=== PATIENT | female | born 1975 | race Caucasian/White ===

== ENCOUNTER → 2016-06-08 | Outpatient (CLI) | payer BC | END | disposition home or self-care (01) | LOC: LAB 09:45 | PROVIDERS: ATTEND Obstetrics & Gynecology | DX: N92.4 Excessive bleeding in the premenopausal period (principal) ==

== ENCOUNTER 2016-08-26 07:05 | Day surgery (SDC) | payer BC ==
[2016-08-23 12:26] LABS: Basophils # (auto) 0 uL; Basophils % (auto) 0.8 % (0.0-2.0); DEFINITIVE VIEW TRANSMISSION; Eosinophils # (auto) 0.1 uL; Hematocrit 32.9 % (36.0-46.0); Hemoglobin 10.4 g/dL (12.2-16.2); Lymphocytes # (auto) 1.8 uL; Lymphocytes % (auto) 31.7 % (10.0-50.0); Mean Corpuscular Hemoglobin 23.5 pg (28.0-32.0); Mean Corpuscular Hgb Conc. 31.8 g/dL (32.0-36.0); Mean Platelet Volume 9.2 fL (7.4-10.4); Monocytes # (auto) 0.5 uL; Monocytes % (auto) 8.6 % (0.0-12.0); Neutrophils # (auto) 3.2 uL; Neutrophils % (auto) 56.9 % (37.0-80.0); Platelet Count (auto) 354 10^3/uL (140-450); Red Cell Distribution Width 18.6 % (11.6-16.0); White Blood Cell 5.5 10^3/uL (4.4-10.8)
[2016-08-23 12:29] LABS: Urine Bilirubin Negative (Negative); Urine Blood Negative /uL (Negative); Urine Color Yellow (Yellow); Urine Glucose Normal (Normal); Urine Ketone Negative (Negative); Urine Nitrite Negative (Negative); Urine Urobilinogen Normal (Negative); Urine pH 5.5 (5.0-8.0)
[2016-08-23 12:44] LABS: INR 1.05 (0.9-1.15); Partial Thromboplastin Time 26.4 sec (22.64-33.71); Prothrombin Time 11.3 sec (9.37-12.3)
[2016-08-23 12:52] LABS: Albumin 3.6 g/dL (3.4-5.0); BUN/Creatinine Ratio 19.5; Bilirubin, Total 0.2 mg/dL (0.2-1.0); Calcium 10.8 mg/dL (8.5-10.1); Potassium 4.2 mmol/L (3.5-5.1); Total Protein 7.7 g/dL (6.4-8.2)
[~2016-08-26] VITALS: Ht 167.6 cm; Wt 84.4 kg
[~2016-08-26 07:05] MED LIST: ALPR0.5T PO; BUPRTAB3 PO
[2016-08-26] MEDS ORDERED: ceFAZolin 1GM/50ML D5W 50 ML IV ONE (07:26)
[2016-08-26] MEDS ORDERED: PROPOFOL 10 MG/ML 20 ML IV ONE (08:31)
[2016-08-26] MEDS ORDERED: MIDAZOLAM HCL 1MG/1ML-2 ML VIAL ONE (08:31)
[2016-08-26] MEDS ORDERED: fentaNYL CITRATE 100 MCG/2 ML VL ONE (08:31)
[2016-08-26] MEDS ORDERED: LACTATED RINGER'S 1,000 ML IV SCH (09:13)
[2016-08-26] MEDS ORDERED: ONDANSETRON HCL 4 MG/2 ML VIAL IV PRN (09:15)
[2016-08-26] MEDS ORDERED: HYDROmorphone HCL 2 MG/ML VL ONE (09:17)
[2016-08-26] MEDS: HYDROmorphone HCL 2 MG/ML VL IV PRN ×2 (09:25→09:35)
[2016-08-26] MEDS ORDERED: hydrALAZINE HCL 20 MG/ML VL IV PRN (09:30)
[2016-08-26] MEDS ORDERED: ONDANSETRON HCL 4 MG/2 ML VIAL IV ONE (09:30)
[2016-08-26] MEDS ORDERED: ePHEDrine SULFATE 50 MG/ML AMP IV PRN (09:30)
[2016-08-26 10:20] VITALS: BP 126/99
== END 2016-08-26 10:23 | disposition home or self-care (01) ==
LOC: SUR 07:05
PROVIDERS: ATTEND Obstetrics & Gynecology
DX: N92.0 Excessive and frequent menstruation with regular cycle (principal); N93.9 Abnormal uterine and vaginal bleeding, unspecified; D64.9 Anemia, unspecified; F41.9 Anxiety disorder, unspecified; F32.9 Major depressive disorder, single episode, unspecified; N80.9 Endometriosis, unspecified
CPT/HCPCS: 36415; 58563; 80053; 81003; 84702; 85025; 85610; 85730; 86850; 86900; 86901; J0690; J1170; J2250; J2704; J3010

== ENCOUNTER → 2019-05-03 | Outpatient (CLI) | payer BC ==
[2019-05-03 11:26] LABS: Basophils # (auto) 0.1 uL; Basophils % (auto) 0.8 % (0.0-2.0); Eosinophils # (auto) 0.1 uL; Eosinophils % (auto) 2.2 % (0.0-7.0); Hemoglobin 12.9 g/dL (12.2-16.2); Lymphocytes # (auto) 2.1 uL; Lymphocytes % (auto) 33.5 % (10.0-50.0); Mean Corpuscular Hemoglobin 29.5 pg (28.0-32.0); Mean Corpuscular Hgb Conc. 33.8 g/dL (32.0-36.0); Mean Corpuscular Volume 87.3 fL (80.0-100.0); Monocytes # (auto) 0.5 uL; Neutrophils # (auto) 3.5 uL; Neutrophils % (auto) 55.5 % (37.0-80.0); Nucleated Red Blood Cells % 0.1 %; Platelet Count (auto) 250 10^3/uL (140-450); Red Blood Cells 4.36 10^6/uL (4.0-5.20); Red Cell Distribution Width 13.4 % (11.8-14.3); White Blood Cell 6.2 10^3/uL (4.4-10.8)
== END | disposition home or self-care (01) ==
LOC: LAB 09:58
PROVIDERS: ATTEND Specialist
DX: N39.9 Disorder of urinary system, unspecified (principal); F41.9 Anxiety disorder, unspecified
CPT/HCPCS: 36415; 84443; 85025

== ENCOUNTER 2019-06-07 07:00 | Inpatient (IN) | payer BC ==
[2019-06-03 12:01] LABS: Basophils # (auto) 0 uL; Basophils % (auto) 0.6 % (0.0-2.0); Eosinophils # (auto) 0.1 uL; Eosinophils % (auto) 1.9 % (0.0-7.0); Hematocrit 39.3 % (36.0-46.0); Lymphocytes # (auto) 2.1 uL; Lymphocytes % (auto) 36.2 % (10.0-50.0); Mean Corpuscular Hemoglobin 28.5 pg (28.0-32.0); Mean Corpuscular Hgb Conc. 33.1 g/dL (32.0-36.0); Mean Corpuscular Volume 86.1 fL (80.0-100.0); Monocytes # (auto) 0.4 uL; Monocytes % (auto) 6.7 % (0.0-12.0); Neutrophils # (auto) 3.1 uL; Neutrophils % (auto) 54.6 % (37.0-80.0); Nucleated Red Blood Cells % 0.1 %; Platelet Count (auto) 272 10^3/uL (140-450); Red Blood Cells 4.56 10^6/uL (4.0-5.20); White Blood Cell 5.7 10^3/uL (4.4-10.8)
[2019-06-03 12:23] LABS: INR 1.08 (0.9-1.15); Partial Thromboplastin Time 26.6 sec (23.64-32.05)
[2019-06-03 13:02] LABS: Albumin 3.9 g/dL (3.4-5.0); Calcium 10.7 mg/dL (8.5-10.1)
[2019-06-03 13:06] LABS: Bilirubin, Total 0.3 mg/dL (0.2-1.0)
[~2019-06-07] VITALS: Ht 170.2 cm; Wt 90.5 kg
[~2019-06-07 07:00] MED LIST changes: +SUMA100T15 PO
[2019-06-07] MEDS ORDERED: HYDROmorphone HCL 2 MG/ML VL ONE ×2 (08:24→11:54)
[2019-06-07] MEDS ORDERED: ONDANSETRON HCL 4 MG/2 ML VIAL ONE (08:24)
[2019-06-07] MEDS ORDERED: fentaNYL CITRATE 10 ML ONE (08:24)
[2019-06-07] MEDS ORDERED: ROCURONIUM 10MG/ML 10ML VIAL IV ONE (08:24)
[2019-06-07] MEDS ORDERED: PROPOFOL 10 MG/ML 20 ML IV ONE (08:24)
[2019-06-07] MEDS ORDERED: fentaNYL CITRATE 100 MCG/2 ML VL ONE (08:24)
[2019-06-07] MEDS ORDERED: SODIUM CHLORIDE LOCK 10 ML ONE (08:24)
[2019-06-07] MEDS ORDERED: MIDAZOLAM HCL 1MG/1ML-2 ML VIAL ONE (08:24)
[2019-06-07] MEDS ORDERED: NEOSTIGMINE 1 MG/ML INJ (10mg/10ML VIAL) IV ONE (08:30)
[2019-06-07] MEDS ORDERED: GLYCOPYRROLATE 0.2 MG/ML 1ML VIAL IV ONE (08:30)
[2019-06-07] MEDS ORDERED: KETOROLAC TROMETH 60MG/2ML VIAL IM ONE (08:30)
[2019-06-07] MEDS ORDERED: KETOROLAC TROMETH 15 mg/ml 1ML VL IV ONE (09:00)
[2019-06-07] MEDS ORDERED: METOCLOPRAMIDE HCL 5MG/ml INJ 2ml VIAL IV PRN (09:00)
[2019-06-07] MEDS ORDERED: HYDROmorphone HCL 2 MG/ML VL IV PRN (09:00)
[2019-06-07] MEDS ORDERED: MORPHINE SULF INJ 2 MG/ML SYRINGE 1ML IV PRN ×2 (09:00→12:00)
[2019-06-07] MEDS ORDERED: fentaNYL CITRATE 100 MCG/2 ML VL IV PRN (09:00)
[2019-06-07] MEDS ORDERED: ceFAZolin 1GM/50ML 100 ML IV ONE (09:02)
[2019-06-07] MEDS ORDERED: KETOROLAC TROMETH 15 mg/ml 1ML VL IV PRN (12:00)
[2019-06-07] MEDS ORDERED: NITROGLYCERIN 0.4 MG SL TAB SL PRN (12:00)
[2019-06-07] MEDS ORDERED: ONDANSETRON HCL 4 MG/2 ML VIAL IV PRN (12:00)
[2019-06-07] MEDS ORDERED: ACETAMINOPHEN IV 100 ML IV ONE ×2 (12:00→12:12)
[2019-06-07] MEDS ORDERED: ceFAZolin 1GM/50ML 50 ML IV ONE (12:00)
[2019-06-07] MEDS ORDERED: ACETAMINOPHEN IV 1000 MG/100ML (10MG/ML) IV ONE (12:15)
[2019-06-07 14:45] VITALS: BP 119/80
[2019-06-07] MEDS: HYDROmorphone HCL 2 MG/ML VL IV PRN ×3 (14:51→20:48)
[2019-06-07 15:11] VITALS: BP 119/80
[2019-06-07] MEDS: ceFAZolin 1GM/50ML 50 ML IV SCH (16:30)
[2019-06-07 17:00] VITALS: BP_SYST 120; BP_SYST 126; BP_DIAS 74; BP_DIAS 80
[2019-06-07 17:21] LABS: BUN/Creatinine Ratio 16.3; Calcium 9.5 mg/dL (8.5-10.1); Potassium 4.8 mmol/L (3.5-5.1)
[2019-06-07] MEDS: LACTATED RINGER'S 1,000 ML IV SCH (18:32)
--- NOTE | 2019-06-07 19:43 | NUR ---
Opening Shift Note Assumed care of patient, awake and alert x4. No S/S of distress/SOB or pain. Call light is within reach, side rails up x2, bed is in lowest position. Family is at bedside. Instructed on POC and to call for assist PRN, will continue to monitor for changes Q1hr and PRN.
[2019-06-07 21:00] VITALS: BP 110/71
[2019-06-08] MEDS: HYDROmorphone HCL 2 MG/ML VL IV PRN ×4 (00:04→21:26)
[2019-06-08] MEDS: ceFAZolin 1GM/50ML 50 ML IV SCH ×2 (00:16→09:40)
[2019-06-08] MEDS: LACTATED RINGER'S 1,000 ML IV SCH ×5 (01:12→21:00)
[2019-06-08 05:00] VITALS: BP 104/67
--- NOTE | 2019-06-08 07:42 | NUR ---
OPENING SHIFT NOTE ASSUMED CARE OF PATIENT. PATIENT IS AWAKE AND ALERT X4. PATIENT HAS NO S/S OF DISTRESS/SOB AT THIS TIME. INSTRUCTED PATIENT ON POC. BED IS IN LOWEST POSITION WITH SIDE RAILS RAISED X2, BED WHEELS LOCKED, AND CALL LIGHT IS WITHIN REACH.
[2019-06-08 09:00] VITALS: BP 95/59
[2019-06-08] MEDS ORDERED: SIMETHICONE 80 MG CHEWABLE TABLET PO PRN (10:15)
[2019-06-08] MEDS: KETOROLAC TROMETH 15 mg/ml 1ML VL IV SCH ×3 (10:47→17:42)
[2019-06-08 11:19] LABS: Basophils # (auto) 0 uL; Basophils % (auto) 0.2 % (0.0-2.0); Eosinophils # (auto) 0 uL; Hematocrit 29.5 % (36.0-46.0); Hemoglobin 9.7 g/dL (12.2-16.2); Lymphocytes # (auto) 1.8 uL; Lymphocytes % (auto) 15.5 % (10.0-50.0); Mean Corpuscular Hemoglobin 28.7 pg (28.0-32.0); Monocytes # (auto) 0.8 uL; Monocytes % (auto) 6.8 % (0.0-12.0); Neutrophils # (auto) 8.8 uL; Neutrophils % (auto) 77.5 % (37.0-80.0); Platelet Count (auto) 254 10^3/uL (140-450); Red Blood Cells 3.39 10^6/uL (4.0-5.20); White Blood Cell 11.4 10^3/uL (4.4-10.8)
[2019-06-08 11:35] LABS: Albumin 3.1 g/dL (3.4-5.0); Calcium 9.9 mg/dL (8.5-10.1)
[2019-06-08 11:38] LABS: BUN/Creatinine Ratio 15.8; Bilirubin, Total 0.3 mg/dL (0.2-1.0); Total Protein 6.6 g/dL (6.4-8.2)
[2019-06-08 13:00] VITALS: BP 106/69
[2019-06-08 16:34] VITALS: BP 120/77
[2019-06-08] MEDS: HYDROcodone-ACET 5/325MG TAB PO PRN (16:34)
--- NOTE | 2019-06-08 19:40 | NUR ---
Opening Shift Note Assumed care of patient, awake and alert. No S/S of distress/SOB or pain. Instructed on POC and to call for assist PRN, will continue to monitor for changes Q1hr and PRN. Patient abdomen incision dry and intact. 2 liter nasal canula connected. Family at bedside.
[2019-06-08 20:00] VITALS: BP 107/64
--- NOTE | 2019-06-08 20:24 | NUR ---
Patient Blood Pressure is 88/45, heart rate 86, temp 97.4, oxygen 98%, respirations 18. Will page hospitalist.
--- NOTE | 2019-06-08 20:29 | NUR ---
Blood pressure reassess 107/64, heart rate 84
[2019-06-08 21:55] VITALS: BP 107/64
[2019-06-09] MEDS: KETOROLAC TROMETH 15 mg/ml 1ML VL IV SCH ×2 (00:20→06:51)
[2019-06-09] MEDS: HYDROmorphone HCL 2 MG/ML VL IV PRN ×2 (01:31→21:38)
[2019-06-09] MEDS: LACTATED RINGER'S 1,000 ML IV SCH ×2 (03:52→12:15)
[2019-06-09] MEDS: HYDROcodone-ACET 5/325MG TAB PO PRN ×3 (04:32→17:45)
[2019-06-09 05:24] VITALS: BP 99/62
--- NOTE | 2019-06-09 07:37 | NUR ---
OPENING SHIFT NOTE RESUMED CARE OF PATIENT. PATIENT IS AWAKE AND ALERT X4. PATIENT HAS NO S/S OF DISTRESS/SOB AT THIS TIME. INSTRUCTED PATIENT ON POC. BED IS IN LOWEST POSITION WITH SIDE RAILS RAISED X2, BED WHEELS LOCKED, AND CALL LIGHT IS WITHIN REACH.
[2019-06-09 09:00] VITALS: BP 116/51
[2019-06-09 13:00] VITALS: BP 114/69
--- NOTE | 2019-06-09 13:19 | NUR ---
WOUND CARE PERFORMED PER DR BUI'S DIRECTION.
[2019-06-09 17:00] VITALS: BP 134/81
--- NOTE | 2019-06-09 19:30 | NUR ---
Opening Shift Note Assumed care of patient, awake and alert. No S/S of distress/SOB or pain. Instructed on POC and to call for assist PRN, will continue to monitor for changes Q1hr and PRN. at bedside.
[2019-06-09 22:00] VITALS: BP 119/68
[2019-06-10] MEDS: HYDROcodone-ACET 5/325MG TAB PO PRN ×2 (00:25→11:30)
[2019-06-10 05:00] VITALS: BP 101/54
[2019-06-10] MEDS: HYDROmorphone HCL 2 MG/ML VL IV PRN (06:15)
[2019-06-10 06:52] LABS: Basophils # (auto) 0.1 uL; Basophils % (auto) 0.9 % (0.0-2.0); Eosinophils # (auto) 0.1 uL; Eosinophils % (auto) 2.1 % (0.0-7.0); Hematocrit 25.5 % (36.0-46.0); Hemoglobin 8.5 g/dL (12.2-16.2); Lymphocytes # (auto) 2.4 uL; Lymphocytes % (auto) 36.6 % (10.0-50.0); Mean Corpuscular Hgb Conc. 33.4 g/dL (32.0-36.0); Mean Corpuscular Volume 86.9 fL (80.0-100.0); Monocytes # (auto) 0.7 uL; Monocytes % (auto) 10.1 % (0.0-12.0); Neutrophils # (auto) 3.3 uL; Neutrophils % (auto) 50.3 % (37.0-80.0); Nucleated Red Blood Cells % 0.1 %; Platelet Count (auto) 208 10^3/uL (140-450); Red Blood Cells 2.93 10^6/uL (4.0-5.20); Red Cell Distribution Width 13.9 % (11.8-14.3); White Blood Cell 6.5 10^3/uL (4.4-10.8)
--- NOTE | 2019-06-10 07:50 | NUR ---
DR. BUI COMES TO BEDSIDE WITH TWO INSURANCE INSTRUCTOR STUDENTS. REMOVES ABDOMINAL DSG. REPLACES ENDY WITH STERI STRIPS AND LEAVES OPEN TO AIR. INCISION IS WELL APPROXIMATED. DISCUSSED PLANS TO DC HOME TODAY. PT EXPRESSES WISH TO CONTINUE SLEEPING.
[2019-06-10 08:43] VITALS: BP 107/51
[2019-06-10 10:49] VITALS: BP 107/51
--- NOTE | 2019-06-10 12:31 | NUR ---
Pain well controlled. Dressed into clothing. IV DC cannula intact dsg applied. takes all belongings roll on travel bag and la pt has cell phone and cryptologic technician technical in hand. Discharge instructions provided. Reinforced rest at home and to keep incision area dry. To private vehicle via .
== END 2019-06-10 12:35 | disposition home or self-care (01) | DRG 743 ==
LOC: EDSTATUS 07:00 → EEVIPCON 07:45 → OVERFLOW 07:45 → EAST 14:37
PROVIDERS: ADMIT Specialist; ATTEND Specialist
PROC: 0UB50ZZ Excision of Right Fallopian Tube, Open Approach (ICD-10-PCS; 2019-06-07)
PROC: 0UB00ZZ Excision of Right Ovary, Open Approach (ICD-10-PCS; 2019-06-07)
PROC: 0UT90ZL Resection of Uterus, Supracervical, Open Approach (ICD-10-PCS; principal; 2019-06-07 09:15)
DX: D25.9 Leiomyoma of uterus, unspecified (principal); N73.6 Female pelvic peritoneal adhesions (postinfective); N80.9 Endometriosis, unspecified; N83.201 Unspecified ovarian cyst, right side; N83.202 Unspecified ovarian cyst, left side; N92.1 Excessive and frequent menstruation with irregular cycle; F41.9 Anxiety disorder, unspecified; N94.6 Dysmenorrhea, unspecified; Z80.0 Family history of malignant neoplasm of digestive organs; Z83.3 Family history of diabetes mellitus; Z79.899 Other long term (current) drug therapy; E66.9 Obesity, unspecified; Z68.31 Body mass index [BMI] 31.0-31.9, adult
CPT/HCPCS: 36415; 80048; 80053; 84702; 85025; 85610; 85730; 86850; 86900; 86901; 87086; G0378; J0131; J0690; J1885; J2250; J2405; J2704

== ENCOUNTER → 2019-06-20 | Outpatient (CLI) | payer BC ==
[2019-06-20 11:27] LABS: Basophils # (auto) 0.1 uL; Basophils % (auto) 0.7 % (0.0-2.0); Eosinophils # (auto) 0.2 uL; Eosinophils % (auto) 2.3 % (0.0-7.0); Hematocrit 33.5 % (36.0-46.0); Hemoglobin 10.9 g/dL (12.2-16.2); Lymphocytes # (auto) 2.6 uL; Lymphocytes % (auto) 27.9 % (10.0-50.0); Mean Corpuscular Hemoglobin 28.3 pg (28.0-32.0); Mean Corpuscular Hgb Conc. 32.5 g/dL (32.0-36.0); Mean Corpuscular Volume 87.1 fL (80.0-100.0); Monocytes # (auto) 0.5 uL; Monocytes % (auto) 5.9 % (0.0-12.0); Neutrophils # (auto) 5.9 uL; Neutrophils % (auto) 63.2 % (37.0-80.0); Nucleated Red Blood Cells % 0.1 %; Platelet Count (auto) 382 10^3/uL (140-450); Red Blood Cells 3.85 10^6/uL (4.0-5.20); Red Cell Distribution Width 14.8 % (11.8-14.3); White Blood Cell 9.3 10^3/uL (4.4-10.8)
[2019-06-20 11:49] LABS: Albumin 3.5 g/dL (3.4-5.0); Calcium 11.1 mg/dL (8.5-10.1); Potassium 4.4 mmol/L (3.5-5.1)
[2019-06-20 11:54] LABS: BUN/Creatinine Ratio 23.5; Bilirubin, Total 0.4 mg/dL (0.2-1.0); Total Protein 7.4 g/dL (6.4-8.2)
[2019-06-20 11:58] LABS: Leuteinizing Hormone 10.5 IU/L
[2019-06-20 11:59] LABS: Follicle Stimulating Hormone 6.12 IU/L (SEE BELOW)
== END | disposition home or self-care (01) ==
LOC: LAB 11:02
PROVIDERS: ATTEND Specialist
DX: N93.9 Abnormal uterine and vaginal bleeding, unspecified (principal)
CPT/HCPCS: 36415; 80053; 83001; 83002; 85025; 87086

== ENCOUNTER 2019-11-29 11:45 | Emergency (ER) | payer BC ==
[~2019-11-29] VITALS: Ht 170.2 cm; Wt 88.5 kg
[2019-11-29] MEDS ORDERED: SODIUM CHLORIDE 0.9% 1,000 ML IVB ONE (11:58)
[2019-11-29] MEDS ORDERED: MORPHINE SULF INJ 2 MG/ML SYRINGE 1ML IV ONE (12:00)
[2019-11-29] MEDS ORDERED: KETOROLAC TROMETH 30 MG/ML 1ML VIAL IV ONE (12:00)
[2019-11-29] MEDS ORDERED: ONDANSETRON HCL 4 MG/2 ML VIAL IV ONE (12:00)
[2019-11-29 13:17] LABS: Basophils # (auto) 0.1 10 ^3/uL (0-0.2); Basophils % (auto) 0.8 % (0.0-2.0); Eosinophils # (auto) 0.1 10 ^3/uL (0-0.8); Eosinophils % (auto) 1.4 % (0.0-7.0); Hematocrit 41.5 % (36.0-46.0); Hemoglobin 13.9 g/dL (12.2-16.2); Lymphocytes # (auto) 2.1 10 ^3/uL (0.4-5.4); Lymphocytes % (auto) 25.3 % (10.0-50.0); Mean Corpuscular Hemoglobin 28.9 pg (28.0-32.0); Mean Corpuscular Hgb Conc. 33.5 g/dL (32.0-36.0); Mean Corpuscular Volume 86.5 fL (80.0-100.0); Monocytes # (auto) 0.8 10 ^3/uL (0-1.3); Monocytes % (auto) 10.1 % (0.0-12.0); Neutrophils # (auto) 5.1 10 ^3/uL (1.6-8.6); Neutrophils % (auto) 62.4 % (37.0-80.0); Nucleated Red Blood Cells % 0.1 %; Platelet Count (auto) 203 10^3/uL (140-450); Red Cell Distribution Width 16.4 % (11.8-14.3); White Blood Cell 8.2 10^3/uL (4.4-10.8)
[2019-11-29 13:21] LABS: Urine Bacteria NONE SEEN /hpf (None Seen); Urine Blood 2+ /uL (Negative); Urine Mucus FEW (None Seen); Urine Specific Gravity 1.025 (1.001-1.035); Urine WBC 10 /hpf (0 - 5)
[2019-11-29 13:32] VITALS: BP 123/71
[2019-11-29 13:36] LABS: Albumin 3.7 g/dL (3.4-5.0); Calcium 11.3 mg/dL (8.5-10.1); Potassium 4.3 mmol/L (3.5-5.1)
[2019-11-29 13:37] LABS: BUN/Creatinine Ratio 33.3
[2019-11-29 13:40] LABS: Bilirubin, Total 0.5 mg/dL (0.2-1.0); Total Protein 7.6 g/dL (6.4-8.2)
== END 2019-11-29 13:47 | disposition home or self-care (01) ==
LOC: ER 11:45
DX: N20.9 Urinary calculus, unspecified (principal); Z90.710 Acquired absence of both cervix and uterus
CPT/HCPCS: 36415; 74176; 80053; 81001; 83690; 85025; 96374; 96375; 99284; J1885; J2405; J7030

== ENCOUNTER → 2020-03-12 | Outpatient (CLI) | payer BC ==
[2020-03-12 09:16] LABS: Basophils # (auto) 0.1 10 ^3/uL (0-0.2); Basophils % (auto) 0.8 % (0.0-2.0); Eosinophils # (auto) 0.1 10 ^3/uL (0-0.8); Eosinophils % (auto) 1.4 % (0.0-7.0); Hematocrit 43.4 % (36.0-46.0); Hemoglobin 14.3 g/dL (12.2-16.2); Lymphocytes # (auto) 2.6 10 ^3/uL (0.4-5.4); Lymphocytes % (auto) 39.4 % (10.0-50.0); Mean Corpuscular Hemoglobin 28.9 pg (28.0-32.0); Mean Corpuscular Hgb Conc. 32.8 g/dL (32.0-36.0); Mean Corpuscular Volume 88.1 fL (80.0-100.0); Monocytes # (auto) 0.5 10 ^3/uL (0-1.3); Monocytes % (auto) 7.5 % (0.0-12.0); Neutrophils # (auto) 3.4 10 ^3/uL (1.6-8.6); Neutrophils % (auto) 50.9 % (37.0-80.0); Nucleated Red Blood Cells % 0.2 %; Platelet Count (auto) 244 10^3/uL (140-450); Red Blood Cells 4.93 10^6/uL (4.0-5.20); Red Cell Distribution Width 13.8 % (11.8-14.3); White Blood Cell 6.7 10^3/uL (4.4-10.8)
[2020-03-12 09:30] LABS: Albumin 3.7 g/dL (3.4-5.0); Calcium 11.4 mg/dL (8.5-10.1); Potassium 4.3 mmol/L (3.5-5.1)
[2020-03-12 09:35] LABS: BUN/Creatinine Ratio 17.3; Bilirubin, Total 0.5 mg/dL (0.2-1.0); Total Protein 7.7 g/dL (6.4-8.2)
[2020-03-12 11:20] LABS: Free T4 (Free Thyroxine) 0.94 ng/dL (0.89-1.76)
[2020-03-12 11:21] LABS: T3 Total 0.89 ng/mL (0.60-1.81)
== END | disposition home or self-care (01) ==
LOC: LAB 08:44
PROVIDERS: ATTEND Physician Assistant
DX: N20.0 Calculus of kidney (principal); L65.9 Nonscarring hair loss, unspecified; R53.83 Other fatigue; R30.0 Dysuria
CPT/HCPCS: 36415; 80053; 80061; 84439; 84480; 85025

== ENCOUNTER → 2020-04-07 | Outpatient (CLI) | payer OTHER | END | disposition home or self-care (01) | LOC: LAB 17:02 | PROVIDERS: ATTEND Physician Assistant | DX: U07.1 COVID-19 (principal) | CPT/HCPCS: C9803; U0003 ==

== ENCOUNTER → 2021-05-13 | Outpatient (CLI) | payer BC ==
[2021-05-13 09:35] LABS: Basophils # (auto) 0 10 ^3/uL (0-0.2); Basophils % (auto) 0.8 % (0.0-2.0); Eosinophils # (auto) 0.1 10 ^3/uL (0-0.8); Eosinophils % (auto) 1.3 % (0.0-7.0); Hematocrit 41.9 % (36.0-46.0); Hemoglobin 14.1 g/dL (12.2-16.2); Lymphocytes # (auto) 2.3 10 ^3/uL (0.4-5.4); Lymphocytes % (auto) 35.9 % (10.0-50.0); Mean Corpuscular Hemoglobin 29.9 pg (28.0-32.0); Mean Corpuscular Hgb Conc. 33.8 g/dL (32.0-36.0); Mean Corpuscular Volume 88.4 fL (80.0-100.0); Monocytes # (auto) 0.4 10 ^3/uL (0-1.3); Monocytes % (auto) 5.8 % (0.0-12.0); Neutrophils # (auto) 3.6 10 ^3/uL (1.6-8.6); Neutrophils % (auto) 56.2 % (37.0-80.0); Nucleated Red Blood Cells % 0.1 %; Red Blood Cells 4.73 10^6/uL (4.0-5.20); Red Cell Distribution Width 13.2 % (11.8-14.3); White Blood Cell 6.4 10^3/uL (4.4-10.8)
[2021-05-13 10:44] LABS: Albumin 3.7 g/dL (3.4-5.0); Calcium 10.3 mg/dL (8.5-10.1); Potassium 4.2 mmol/L (3.5-5.1)
[2021-05-13 10:51] LABS: Bilirubin, Total 0.4 mg/dL (0.2-1.0); Total Protein 7.8 g/dL (6.4-8.2)
[2021-05-13 13:45] LABS: BUN/Creatinine Ratio 23.3
== END | disposition home or self-care (01) ==
LOC: LAB 09:00
PROVIDERS: ATTEND Nurse Practitioner Family
DX: Z00.00 Encounter for general adult medical examination without abnormal findings (principal); R73.09 Other abnormal glucose; E78.00 Pure hypercholesterolemia, unspecified; F41.9 Anxiety disorder, unspecified
CPT/HCPCS: 36415; 80053; 80061; 82043; 83036; 85025

== ENCOUNTER → 2021-07-19 | Day surgery (SDC) | payer BC ==
[2021-07-16 09:49] LABS: Basophils # (auto) 0.1 10 ^3/uL (0-0.2); Basophils % (auto) 0.9 % (0.0-2.0); Eosinophils # (auto) 0.1 10 ^3/uL (0-0.8); Eosinophils % (auto) 0.9 % (0.0-7.0); Hematocrit 40.3 % (36.0-46.0); Hemoglobin 13.9 g/dL (12.2-16.2); Lymphocytes # (auto) 2.7 10 ^3/uL (0.4-5.4); Lymphocytes % (auto) 47.5 % (10.0-50.0); Mean Corpuscular Hemoglobin 30.4 pg (28.0-32.0); Mean Corpuscular Hgb Conc. 34.5 g/dL (32.0-36.0); Monocytes # (auto) 0.4 10 ^3/uL (0-1.3); Monocytes % (auto) 6.5 % (0.0-12.0); Neutrophils # (auto) 2.5 10 ^3/uL (1.6-8.6); Neutrophils % (auto) 44.2 % (37.0-80.0); Red Blood Cells 4.58 10^6/uL (4.0-5.20); Red Cell Distribution Width 13.2 % (11.8-14.3); White Blood Cell 5.7 10^3/uL (4.4-10.8)
[2021-07-16 10:11] LABS: Albumin 3.9 g/dL (3.4-5.0); Calcium 10.8 mg/dL (8.5-10.1); Potassium 3.9 mmol/L (3.5-5.1)
[2021-07-16 10:15] LABS: Bilirubin, Total 0.5 mg/dL (0.2-1.0); Total Protein 7.7 g/dL (6.4-8.2)
[2021-07-16 10:31] LABS: Urine Bacteria FEW /hpf (None Seen); Urine Blood Negative /uL (Negative); Urine Mucus FEW (None Seen); Urine Specific Gravity 1.017 (1.001-1.035); Urine WBC 15 /hpf (0 - 5)
[2021-07-16 10:37] LABS: INR 1.06 (0.9-1.15); Partial Thromboplastin Time 29.1 sec (23.6-33.0)
[2021-07-16 13:19] LABS: BUN/Creatinine Ratio 14.3
[~2021-07-19] VITALS: Ht 170.2 cm; Wt 92.5 kg
[~2021-07-19] MED LIST changes: -ALPR0.5T PO; +CIPROFLOXACIN 400MG/200ML 200 ML IV ONE; +DexAMETHasone SOD PHOS 10MG/1ML VIAL INJ ONE; +METOCLOPRAMIDE HCL 5MG/ml INJ 2ml VIAL IV PRN; +MIDAZOLAM HCL 2MG/2ML 2ml VIAL (1mg/ml) ONE; +MORPHINE SULFATE 4 MG/ML SYR/VIAL IV PRN; +ONDANSETRON HCL 4 MG/2 ML VIAL ONE; +PROPOFOL 10 MG/ML 20 ML IV ONE; +SERT25TA84 PO; +SODIUM CHLORIDE LOCK 10 ML ONE; +SUCCINYLCHOLINE CHLORIDE 20 MG/ML 10ML VIAL IV ONE; -SUMA100T15 PO; +fentaNYL CITRATE 100 MCG/2 ML VL ONE
[2021-07-19] MEDS: HYDROmorphone HCL 2 MG/ML VL IV PRN ×2 (08:52→09:04)
[2021-07-19 09:45] VITALS: BP 125/80
== END | disposition home or self-care (01) ==
LOC: SUR 06:26
PROVIDERS: ATTEND Urology
DX: N20.0 Calculus of kidney (principal); F32.A Depression, unspecified; E66.9 Obesity, unspecified; F41.9 Anxiety disorder, unspecified; Z86.16 Personal history of COVID-19; Z90.710 Acquired absence of both cervix and uterus; Z98.890 Other specified postprocedural states; Z79.899 Other long term (current) drug therapy; Z82.49 Family history of ischemic heart disease and other diseases of the circulatory system; Z83.3 Family history of diabetes mellitus; Z81.3 Family history of other psychoactive substance abuse and dependence; Z68.32 Body mass index [BMI] 32.0-32.9, adult
CPT/HCPCS: 36415; 50590; 80053; 81001; 85025; 85610; 85730; J0330; J0744; J1100; J1170; J2250; J2405; J2704; J3010; U0003

== ENCOUNTER → 2021-11-15 | Day surgery (SDC) | payer BC ==
[2021-11-12 09:29] LABS: Basophils # (auto) 0 10 ^3/uL (0-0.2); Basophils % (auto) 0.6 % (0.0-2.0); Eosinophils # (auto) 0.1 10 ^3/uL (0-0.8); Eosinophils % (auto) 1.5 % (0.0-7.0); Hematocrit 42.9 % (36.0-46.0); Hemoglobin 14.3 g/dL (12.2-16.2); Mean Corpuscular Hemoglobin 29.8 pg (28.0-32.0); Mean Corpuscular Hgb Conc. 33.3 g/dL (32.0-36.0); Mean Corpuscular Volume 89.3 fL (80.0-100.0); Monocytes # (auto) 0.4 10 ^3/uL (0-1.3); Monocytes % (auto) 7.2 % (0.0-12.0); Neutrophils # (auto) 2.5 10 ^3/uL (1.6-8.6); Neutrophils % (auto) 49.7 % (37.0-80.0); Red Cell Distribution Width 13.8 % (11.8-14.3)
[2021-11-12 09:41] LABS: Urine Bacteria NONE SEEN /hpf (None Seen); Urine Blood 1+ /uL (Negative); Urine Mucus FEW (None Seen); Urine Specific Gravity 1.021 (1.001-1.035); Urine WBC 40 /hpf (0 - 5)
[2021-11-12 09:52] LABS: INR 1.03 (0.9-1.15); Partial Thromboplastin Time 27.5 sec (24.6-33.4)
[2021-11-12 10:14] LABS: Albumin 3.8 g/dL (3.4-5.0); Calcium 10.7 mg/dL (8.5-10.1); Potassium 4.2 mmol/L (3.5-5.1)
[2021-11-12 10:18] LABS: BUN/Creatinine Ratio 20.5; Bilirubin, Total 0.4 mg/dL (0.2-1.0); Total Protein 7.7 g/dL (6.4-8.2)
[~2021-11-15] VITALS: Ht 170.2 cm; Wt 91.6 kg
[~2021-11-15] MED LIST changes: +ALPR0.25 PO; -BUPRTAB3 PO; -CIPROFLOXACIN 400MG/200ML 200 ML IV ONE; +LABETALOL HCL 5 MG/ML 4ML SYRINGE IV PRN; +MEPERIDINE HCL (25 MG/ML) 1ML VIAL ONE; -METOCLOPRAMIDE HCL 5MG/ml INJ 2ml VIAL IV PRN; +MIDAZOLAM HCL 2MG/2ML 2ml VIAL (1mg/ml) IV PRN; +ONDANSETRON HCL 4 MG/2 ML VIAL IV PRN; -ONDANSETRON HCL 4 MG/2 ML VIAL ONE; -SERT25TA84 PO; -SODIUM CHLORIDE LOCK 10 ML ONE; -SUCCINYLCHOLINE CHLORIDE 20 MG/ML 10ML VIAL IV ONE; +ceFAZolin 1GM/50ML 50 ML IV ONE; +ePHEDrine SULFATE 50 MG/ML AMP IV PRN
[2021-11-15] MEDS: HYDROmorphone HCL 2 MG/ML VL/or syr IV PRN ×4 (08:43→09:15)
[2021-11-15 09:49] VITALS: BP 124/79
== END | disposition home or self-care (01) ==
LOC: SUR 06:29
PROVIDERS: ATTEND Urology
DX: N20.0 Calculus of kidney (principal); F41.9 Anxiety disorder, unspecified; E66.9 Obesity, unspecified; F32.A Depression, unspecified; Z90.710 Acquired absence of both cervix and uterus; Z68.32 Body mass index [BMI] 32.0-32.9, adult; Z82.49 Family history of ischemic heart disease and other diseases of the circulatory system; Z83.3 Family history of diabetes mellitus; Z84.1 Family history of disorders of kidney and ureter; Z20.822 Contact with and (suspected) exposure to COVID-19
CPT/HCPCS: 36415; 50590; 80053; 81001; 85025; 85610; 85730; 87086; J0690; J1100; J1170; J2175; J2250; J2704; J3010; U0003

== ENCOUNTER 2022-01-05 08:18 | Emergency (ER) | payer BC ==
[~2022-01-05] VITALS: Ht 170.2 cm; Wt 92.7 kg
[~2022-01-05 08:18] MED LIST changes: -DexAMETHasone SOD PHOS 10MG/1ML VIAL INJ ONE; -LABETALOL HCL 5 MG/ML 4ML SYRINGE IV PRN; -MEPERIDINE HCL (25 MG/ML) 1ML VIAL ONE; -MIDAZOLAM HCL 2MG/2ML 2ml VIAL (1mg/ml) IV PRN; -MIDAZOLAM HCL 2MG/2ML 2ml VIAL (1mg/ml) ONE; -MORPHINE SULFATE 4 MG/ML SYR/VIAL IV PRN; -ONDANSETRON HCL 4 MG/2 ML VIAL IV PRN; -PROPOFOL 10 MG/ML 20 ML IV ONE; -ceFAZolin 1GM/50ML 50 ML IV ONE; -ePHEDrine SULFATE 50 MG/ML AMP IV PRN; -fentaNYL CITRATE 100 MCG/2 ML VL ONE
[2022-01-05 09:07] LABS: Urine Bacteria NONE SEEN /hpf (None Seen); Urine Blood 1+ /uL (Negative); Urine Mucus FEW (None Seen); Urine Specific Gravity 1.021 (1.001-1.035); Urine WBC 8 /hpf (0 - 5)
[2022-01-05] MEDS ORDERED: KETOROLAC TROMETH 60MG/2ML VIAL IM ONE (10:15)
[2022-01-05] MEDS ORDERED: TAM04C PO (11:57)
[2022-01-05] MEDS ORDERED: ONDA-144 PO (11:57)
[2022-01-05 12:10] VITALS: BP 137/88
== END 2022-01-05 12:13 | disposition home or self-care (01) ==
LOC: ER 08:18
DX: N20.0 Calculus of kidney (principal); Z90.710 Acquired absence of both cervix and uterus
CPT/HCPCS: 74176; 81001; 96372; 99284; J1885

== ENCOUNTER → 2022-07-22 | Outpatient (CLI) | payer BC ==
[~2022-07-22] MED LIST changes: +ONDA-144 PO; +TAM04C PO
[2022-07-22 09:16] LABS: Basophils # (auto) 0 10 ^3/uL (0-0.2); Basophils % (auto) 0.5 % (0.0-2.0); Eosinophils # (auto) 0.1 10 ^3/uL (0-0.8); Eosinophils % (auto) 1.2 % (0.0-7.0); Hematocrit 41.9 % (36.0-46.0); Hemoglobin 14.2 g/dL (12.2-16.2); Lymphocytes # (auto) 2.8 10 ^3/uL (0.4-5.4); Lymphocytes % (auto) 41.3 % (10.0-50.0); Mean Corpuscular Hemoglobin 30.2 pg (28.0-32.0); Mean Corpuscular Volume 88.9 fL (80.0-100.0); Monocytes # (auto) 0.5 10 ^3/uL (0-1.3); Neutrophils # (auto) 3.4 10 ^3/uL (1.6-8.6); Nucleated Red Blood Cells % 0.1 %; Red Blood Cells 4.72 10^6/uL (4.0-5.20); Red Cell Distribution Width 13.5 % (11.8-14.3); White Blood Cell 6.8 10^3/uL (4.4-10.8)
[2022-07-22 09:24] LABS: Urine Bacteria NONE SEEN /hpf (None Seen); Urine Blood Negative /uL (Negative); Urine Mucus FEW (None Seen); Urine Specific Gravity 1.018 (1.001-1.035); Urine WBC 4 /hpf (0 - 5)
[2022-07-22 09:51] LABS: Albumin 3.7 g/dL (3.4-5.0); Calcium 10.4 mg/dL (8.5-10.1); Potassium 4.3 mmol/L (3.5-5.1)
[2022-07-22 09:55] LABS: BUN/Creatinine Ratio 18.9 (10.0-20.0); Bilirubin, Total 0.3 mg/dL (0.2-1.0); Total Protein 7.5 g/dL (6.4-8.2)
== END | disposition home or self-care (01) ==
LOC: LAB 08:55
PROVIDERS: ATTEND Nurse Practitioner Family
DX: E78.00 Pure hypercholesterolemia, unspecified (principal); R73.03 Prediabetes; F41.9 Anxiety disorder, unspecified
CPT/HCPCS: 36415; 80053; 80061; 81001; 82043; 83036; 84439; 84443; 85025

== ENCOUNTER → 2023-11-21 | Outpatient (CLI) | payer BC ==
[~2023-11-21] MED LIST changes: -TAM04C PO; +TAMS-35 PO
[2023-11-21 09:08] LABS: Basophils # (auto) 0.1 10 ^3/uL (0-0.2); Basophils % (auto) 0.9 % (0.0-2.0); Eosinophils # (auto) 0.1 10 ^3/uL (0-0.8); Hematocrit 42.3 % (36.0-46.0); Hemoglobin 14.5 g/dL (12.2-16.2); Lymphocytes # (auto) 3.1 10 ^3/uL (0.4-5.4); Mean Corpuscular Hemoglobin 30.5 pg (28.0-32.0); Mean Corpuscular Hgb Conc. 34.4 g/dL (32.0-36.0); Mean Corpuscular Volume 88.7 fL (80.0-100.0); Monocytes # (auto) 0.5 10 ^3/uL (0-1.3); Monocytes % (auto) 7.6 % (0.0-12.0); Neutrophils # (auto) 2.4 10 ^3/uL (1.6-8.6); Neutrophils % (auto) 39.5 % (37.0-80.0); Nucleated Red Blood Cells % 0.2 %; Red Blood Cells 4.77 10^6/uL (4.0-5.20); Red Cell Distribution Width 13.6 % (11.8-14.3); White Blood Cell 6.2 10^3/uL (4.4-10.8)
[2023-11-21 09:33] LABS: Creatinine, Urine 139.05 mg/dL (30.0-125.0)
[2023-11-21 09:37] LABS: Alanine Aminotransferase 16 U/L (7-40); Albumin 4.3 g/dL (3.2-4.8); Alkaline Phosphatase 139 U/L (46-116); Anion Gap 6 (5-15); Aspartate Aminotransferase < 8 U/L (13-40); BUN/Creatinine Ratio 19.3 (10.0-20.0); Bilirubin, Total 0.4 mg/dL (0.2-1.0); Blood Urea Nitrogen 17 mg/dL (9-23); Calcium 11.2 mg/dL (8.7-10.4); Carbon Dioxide 26 mmol/L (20-30); Chloride 106 mmol/L (98-107); Cholesterol 228 mg/dL (< 200); Glucose 165 mg/dL (74-106); HDL Cholesterol 37 mg/dL (40-59); Potassium 3.7 mmol/L (3.5-5.1); Sodium 138 mmol/L (136-145); Triglycerides 461 mg/dL (< 150)
== END | disposition home or self-care (01) ==
LOC: LAB 08:51 → EEVIPCON 08:51
PROVIDERS: ATTEND Nurse Practitioner Family
DX: E11.65 Type 2 diabetes mellitus with hyperglycemia (principal); E78.00 Pure hypercholesterolemia, unspecified
CPT/HCPCS: 36415; 80053; 80061; 82043; 82306; 82570; 83036; 84443; 85025

== ENCOUNTER → 2024-01-22 | Outpatient (CLI) | payer BC ==
[2024-01-22 12:10] VITALS: BP 124/87; PULSE 72; RESP 16; O2SAT 98
[2024-01-22] MEDS: MVI in SODIUM CHLORIDE 0.9% 500 ML IVB ONE (12:10)
[2024-01-22] MEDS: MULTIPLE VIT 10 ML IV ONE (12:38)
[2024-01-22 14:48] VITALS: BP 127/73; PULSE 67; RESP 18; O2SAT 98
== END | disposition home or self-care (01) ==
LOC: CHF HDHVI 12:04
PROVIDERS: ATTEND Internal Medicine Cardiovascular Disease
DX: E86.0 Dehydration (principal); E11.65 Type 2 diabetes mellitus with hyperglycemia; E78.00 Pure hypercholesterolemia, unspecified
CPT/HCPCS: 96365; 96366; G0463; J7040; 96360; 96361

== ENCOUNTER → 2024-01-31 | Outpatient (CLI) | payer BC ==
[2024-01-31 13:59] VITALS: BP 128/81; PULSE 64; RESP 18; O2SAT 97
[2024-01-31] MEDS: MVI in SODIUM CHLORIDE 0.9% 500 ML IVB ONE (13:59)
[2024-01-31] MEDS: MULTIPLE VIT 10 ML IV ONE (14:07)
[2024-01-31 14:13] VITALS: BP 135/90; PULSE 65; RESP 20; O2SAT 97
== END | disposition home or self-care (01) ==
LOC: CHF HDHVI 13:58
PROVIDERS: ATTEND Internal Medicine Cardiovascular Disease
DX: E86.0 Dehydration (principal); E78.00 Pure hypercholesterolemia, unspecified; E11.9 Type 2 diabetes mellitus without complications
CPT/HCPCS: 96365; G0463; J3411; J3475; J7040; 96360; 96361

== ENCOUNTER → 2024-02-07 | Outpatient (CLI) | payer BC ==
[2024-02-07 14:00] VITALS: BP 113/79; PULSE 67; RESP 16; O2SAT 98
[2024-02-07] MEDS: MULTIPLE VIT 10 ML IV ONE (14:06)
[2024-02-07] MEDS: MVI in SODIUM CHLORIDE 0.9% 500 ML IVB ONE (14:30)
[2024-02-07 16:25] VITALS: BP 111/68; PULSE 61; RESP 16; O2SAT 96
== END | disposition home or self-care (01) ==
LOC: CHF HDHVI 14:00
PROVIDERS: ATTEND Internal Medicine Cardiovascular Disease
DX: E86.0 Dehydration (principal); E11.9 Type 2 diabetes mellitus without complications; E78.00 Pure hypercholesterolemia, unspecified
CPT/HCPCS: 96365; 96366; G0463; J3411; J3475; J7040; 96360; 96361

== ENCOUNTER → 2024-02-14 | Outpatient (CLI) | payer BC ==
[~2024-02-14] VITALS: Ht 30.5 cm; Wt 0.5 kg
[2024-02-14 14:10] VITALS: BP 120/75; PULSE 61; RESP 18; O2SAT 94
[2024-02-14] MEDS: MVI in SODIUM CHLORIDE 0.9% 500 ML IVB ONE (14:10)
[2024-02-14] MEDS: MULTIPLE VIT 10 ML IV ONE (14:18)
[2024-02-14 16:27] VITALS: BP 146/74; PULSE 61; RESP 18; O2SAT 96
== END | disposition home or self-care (01) ==
LOC: CHF HDHVI 14:00
PROVIDERS: ATTEND Internal Medicine Cardiovascular Disease
DX: E86.0 Dehydration (principal); E78.00 Pure hypercholesterolemia, unspecified; E11.9 Type 2 diabetes mellitus without complications
CPT/HCPCS: 96365; 96366; G0463; J7040; 96360; 96361

== ENCOUNTER → 2024-03-06 | Outpatient (CLI) | payer BC ==
[2024-03-06 14:00] VITALS: BP 133/77; PULSE 52; RESP 18; O2SAT 97
[2024-03-06] MEDS: MVI in SODIUM CHLORIDE 0.9% 500 ML IVB ONE (14:00)
[2024-03-06] MEDS: MULTIPLE VIT 10 ML IV ONE (14:34)
[2024-03-06 16:18] VITALS: BP 138/87; PULSE 60; RESP 18; O2SAT 97
== END | disposition home or self-care (01) ==
LOC: CHF HDHVI 13:57
PROVIDERS: ATTEND Internal Medicine Cardiovascular Disease
DX: E86.0 Dehydration (principal); E11.9 Type 2 diabetes mellitus without complications; E78.00 Pure hypercholesterolemia, unspecified
CPT/HCPCS: 96365; 96366; G0463; J3411; J3475; J7040; 96360; 96361

== ENCOUNTER → 2024-03-13 | Outpatient (CLI) | payer BC ==
[2024-03-13 14:00] VITALS: BP 123/78; PULSE 65; RESP 16; O2SAT 98
[2024-03-13] MEDS: MVI in SODIUM CHLORIDE 0.9% 1,000 ML IVB ONE (14:00)
[2024-03-13] MEDS: MULTIPLE VIT 10 ML IV ONE (14:19)
[2024-03-13 16:17] VITALS: BP 123/78; PULSE 65; RESP 16; O2SAT 98
== END | disposition home or self-care (01) ==
LOC: CHF HDHVI 13:56
PROVIDERS: ATTEND Internal Medicine Cardiovascular Disease
DX: E86.0 Dehydration (principal); R53.83 Other fatigue; E11.9 Type 2 diabetes mellitus without complications; E78.00 Pure hypercholesterolemia, unspecified
CPT/HCPCS: 96365; 96366; G0463; J7040; 96360; 96361

== ENCOUNTER → 2024-03-20 | Outpatient (CLI) | payer BC ==
[2024-03-20 13:58] VITALS: BP 119/75; PULSE 57; RESP 16; O2SAT 97
[2024-03-20] MEDS: MVI in SODIUM CHLORIDE 0.9% 500 ML IVB ONE (14:00)
[2024-03-20] MEDS: MULTIPLE VIT 10 ML IV ONE (14:11)
[2024-03-20 16:16] VITALS: BP 141/83; PULSE 60; RESP 18; O2SAT 97
== END | disposition home or self-care (01) ==
LOC: CHF HDHVI 13:53
PROVIDERS: ATTEND Internal Medicine Cardiovascular Disease
DX: E86.0 Dehydration (principal); R53.83 Other fatigue; E11.9 Type 2 diabetes mellitus without complications; E78.00 Pure hypercholesterolemia, unspecified
CPT/HCPCS: 96365; 96366; G0463; J3411; J3475; J7040; 96360; 96361

== ENCOUNTER → 2024-03-27 | Outpatient (CLI) | payer BC ==
[2024-03-27 10:00] VITALS: BP 132/79; PULSE 67; RESP 16; O2SAT 99
[2024-03-27] MEDS: MVI in SODIUM CHLORIDE 0.9% 500 ML IVB ONE (10:00)
[2024-03-27] MEDS: MULTIPLE VIT 10 ML IV ONE (10:04)
[2024-03-27 12:19] VITALS: BP 137/65; PULSE 63; RESP 16; O2SAT 99
== END | disposition home or self-care (01) ==
LOC: CHF HDHVI 10:00
PROVIDERS: ATTEND Internal Medicine Cardiovascular Disease
DX: E86.0 Dehydration (principal); R53.83 Other fatigue; E11.9 Type 2 diabetes mellitus without complications; E78.00 Pure hypercholesterolemia, unspecified
CPT/HCPCS: 96365; 96366; G0463; J7040; 96360; 96361

== ENCOUNTER → 2024-04-05 | Outpatient (CLI) | payer BC ==
[2024-04-05 14:08] VITALS: BP 128/83; PULSE 90; RESP 16; O2SAT 97
[2024-04-05] MEDS: MULTIPLE VIT 10 ML IV ONE (14:22)
[2024-04-05] MEDS: MVI in SODIUM CHLORIDE 0.9% 500 ML IVB ONE (14:26)
[2024-04-05 16:27] VITALS: BP 133/85; PULSE 58; RESP 16; O2SAT 97
== END | disposition home or self-care (01) ==
LOC: CHF HDHVI 14:35
PROVIDERS: ATTEND Internal Medicine Cardiovascular Disease
DX: E86.0 Dehydration (principal); R53.83 Other fatigue; E11.9 Type 2 diabetes mellitus without complications; E78.00 Pure hypercholesterolemia, unspecified
CPT/HCPCS: 96365; 96366; G0463; J3411; J3475; J7040; 96360; 96361

== ENCOUNTER → 2024-04-10 | Outpatient (CLI) | payer BC ==
[2024-04-10] MEDS: MULTIPLE VIT 10 ML IV ONE (13:35)
[2024-04-10 13:36] VITALS: BP 126/80; PULSE 75; RESP 18; O2SAT 98
[2024-04-10] MEDS: MVI in SODIUM CHLORIDE 0.9% 500 ML IVB ONE (13:36)
[2024-04-10 15:45] VITALS: BP 126/80; PULSE 75; RESP 18; O2SAT 98
== END | disposition home or self-care (01) ==
LOC: CHF HDHVI 13:32
PROVIDERS: ATTEND Internal Medicine Cardiovascular Disease
DX: E86.0 Dehydration (principal); E78.00 Pure hypercholesterolemia, unspecified; E11.9 Type 2 diabetes mellitus without complications
CPT/HCPCS: 96365; 96366; G0463; J7040; 96360; 96361

== ENCOUNTER → 2024-04-17 | Outpatient (CLI) | payer BC ==
[2024-04-17 14:06] VITALS: BP 127/83; PULSE 66; RESP 18; O2SAT 100
[2024-04-17 14:30] VITALS: BP 127/83; PULSE 66; RESP 18; O2SAT 100
[2024-04-17] MEDS: MULTIPLE VIT 10 ML IV ONE ×2 (14:42)
== END | disposition home or self-care (01) ==
LOC: CHF HDHVI 14:02
PROVIDERS: ATTEND Internal Medicine Cardiovascular Disease
DX: E86.0 Dehydration (principal)
CPT/HCPCS: G0463

== ENCOUNTER 2024-12-06 17:40 | Inpatient (IN) | payer BC ==
[~2024-12-06] VITALS: Ht 167.6 cm; Wt 76.2 kg
--- NOTE | 2024-12-06 19:34 | ED.PDOC ---
General HPI Comments 49-year-old female with a history of kidney stones status post lithotripsy, hysterectomy and gastric sleeve brought in by private car complaining of left flank pain radiating to the left lower quadrant for the past 2 or 3 days. Patient states she sustained a right foot fracture about a week ago and was given a steroid injection for foot inflammation. She was seen at another facility today which showed a urine dip positive for urinary tract infection. She started nitrofurantoin today. She reports no fever, does have nausea but no vomiting, also has hematuria. Chief Complaint: Flank Pain Time Seen by MD: 17:52 Primary Care Provider: PATRICIA Reviewed notes: Nurses Notes Allergies: Coded Allergies: NO KNOWN ALLERGIES (Unverified , 06/03/19) Home Meds Active Scripts Tamsulosin Hcl (Flomax) 0.4 Mg Cap, 1 CAP PO DAILY, #30 CAP 11 Refills Prov:IRON CÁRDENAS 01/05/22 Ondansetron (Zofran) 4 Mg Tab, 1 TAB PO BID, #20 TAB Prov:IRON CÁRDENAS 01/05/22 Reported Medications Alprazolam (Xanax) 0.25 Mg Tb, 0.25 MG PO HS, TAB 11/12/21 Information Source: Patient Mode of Arrival: Ambulatory Severity: Moderate Inability to void: Mild Timing: Days Duration: Intermittent Has not urinated for: Minutes Onset: Spontaneous Symptoms: Dysuria, Hematuria History of: Kidney stone Location: (L)Flank associated signs and symptoms: Nausea, Flank Pain, Back Pain, Dysuria, Hematuria Past Medical History PAST MEDICAL HISTORY: Anxiety, Depression, Kidney Stones Surgical History: Hysterectomy Surgical History (Other): Gastric sleeve, lithotripsy [employer] History: Endometriosis Family History Family History: Reviewed,noncontributory to illness, Family hx of DM, Family hx of Cancer Social History Smoker: Non-Smoker Alcohol: Occasionally Drugs: Denies Drug Use Lives In: Home Constitutional: denies: chills, diaphoresis, fatigue, fever, malaise, sweats, weakness, others EENTM: denies: blurred vision, double vision, ear bleeding, ear discharge, ear drainage, ear pain, ear ringing, eye pain, eye redness, hearing loss, mouth pain, mouth swelling, nasal discharge, nose bleeding, nose congestion, nose pain, photophobia, tearing, throat pain, throat swelling, voice changes, others Respiratory: denies: cough, hemoptysis, orthopnea, SOB at rest, shortness of breath, SOB with excertion, stridor, wheezing, others Cardiovascular: denies: chest pain, dizzy spells, diaphoresis, Dyspnea on exertion, edema, irregular heart beat, left arm pain, lightheadedness, palpitations, PND, syncope, others Gastrointestinal: reports: nausea; denies: abdomen distended, abdominal pain, blood streaked bowels, constipated, diarrhea, dysphagia, difficulty swallowing, hematemesis, melena, poor appetite, poor fluid intake, rectal bleeding, rectal pain, vomiting, others Genitourinary: reports: dysuria, flank pain (left), hematuria; denies: abnormal vagina bleeding, burning, dyspareunia, frequency, incontinence, pain, , vagina discharge, urgency, others Neurological: denies: dizziness, fainting, headache, left sided numbness, left sided weakness, numbness, paresthesia, pre-existing deficit, right sided numbness, right sided weakness, seizure, speech problems, tingling, tremors, weakness, others Musculoskeletal: reports: back pain; denies: gout, joint pain, joint swelling, muscle pain, muscle stiffness, neck pain, others Integumetry: denies: bruises, change in color, change in hair/nails, dryness, laceration, lesions, lumps, rash, wounds, others Allergic/Immunocompromised: denies: Difficulty Healing, Frequent Infections, Hives, Itching, others Hematologic/Lymphatic: denies: anemia, blood clots, easy bleeding, easy bruising, swollen glands, others Endocrine: denies: excessive hunger, excessive sweating, excessive thirst, excessive urination, flushing, intolerance to cold, intolerance to heat, unexplained weight gain, unexplained weight loss, others Psychiatric: denies: anxiety, bipolar disorder, depression, hopeless, panic disorder, schizophrenia, sleepless, suicidal, others All Other Systems: Reviewed and Negative (Comprehensive systems review obtained and negative except for what is stated in the HPI.) Physical Exam General Appearance: No Apparent Distress HEENT: Other (Pupils and face symmetric. Moist mucous membranes.) Neck: Full Range of Motion, Normal Inspection Respiratory: Lungs Clear, No Accessory Muscle Use, No Respiratory Distress, Normal Breath Sounds Cardiovascular: No Edema, No JVD, Regular Rate/Rhythm Breast Exam: Deferred Gastrointestinal: Soft, Tenderness (Left flank and left lower quadrant) Genitalia: Deferred Pelvic: Deferred Rectal: Deferred Extremities: Other (Right lower extremity orthopedic boot in place. Otherwise extremities normal to inspection without edema or tenderness.) Neurologic: Alert (Oriented x4), NOT DONE (Ambulatory without difficulty) Cerebellar Function: NOT DONE Reflexes: NOT DONE Skin: Dry, Normal Color, Warm Lymphatic: NOT DONE Was a procedure done? Was a procedure done?: No Differential Diagnosis Kidney stone (Female): Bowel obstruction, Musculoskeletal pain, Pyelonephritis, Renal failure, Urinary obstruction, Urolithiasis Kidney stone (Male): N/A Penile/Scrotal: N/A Urinary Problem (Male): N/A Urinary Problem (Female): AAA, Aortic dissection, UTI X-Ray, Labs, Meds, VS Vital Signs Date Time Temp Pulse Resp B/P (MAP) Pulse Ox O2 Delivery O2 Flow Rate FiO2 12/06/24 20:50 86 19 100 Room Air 12/06/24 20:50 98.2 86 19 128/87 (101) 100 98.2 12/06/24 17:41 98.2 78 18 146/90 99 98.2 Lab Test 12/06/24 20:27 12/06/24 18:50 Range/Units White Blood Count 12.4 H 4.4-10.8 10^3/uL Red Blood Count 4.91 4.0-5.20 10^6/uL Hemoglobin 14.8 12.2-16.2 g/dL Hematocrit 43.7 36.0-46.0 % Mean Corpuscular Volume 89.0 80.0-100.0 fL Mean Corpuscular Hemoglobin 30.2 28.0-32.0 pg Mean Corpuscular Hemoglobin Concent 34.0 32.0-36.0 g/dL Red Cell Distribution Width 13.3 11.8-14.3 % Platelet Count 223 140-450 10^3/uL Mean Platelet Volume 9.4 6.9-10.8 fL Neutrophils (%) (Auto) 75.6 37.0-80.0 % Lymphocytes (%) (Auto) 14.2 10.0-50.0 % Monocytes (%) (Auto) 8.8 0.0-12.0 % Eosinophils (%) (Auto) 1.0 0.0-7.0 % Basophils (%) (Auto) 0.4 0.0-2.0 % Neutrophils # (Auto) 9.4 H 1.6-8.6 10 ^3/uL Lymphocytes # (Auto) 1.8 0.4-5.4 10 ^3/uL Monocytes # (Auto) 1.1 0-1.3 10 ^3/uL Eosinophils # (Auto) 0.1 0-0.8 10 ^3/uL Basophils # (Auto) 0 0-0.2 10 ^3/uL Nucleated Red Blood Cells 0.0 % Sodium Level 139 136-145 mmol/L Potassium Level 4.1 3.5-5.1 mmol/L Chloride Level 105 98-107 mmol/L Carbon Dioxide Level 25 20-31 mmol/L Anion Gap 9 5-15 Blood Urea Nitrogen 17 9-23 mg/dL Creatinine 0.98 0.550-1.02 mg/dL Glomerular Filtration Rate Calc 71 >90 mL/min BUN/Creatinine Ratio 17.3 10.0-20.0 Serum Glucose 115 H 74-106 mg/dL Calcium Level 11.3 H 8.7-10.4 mg/dL Urine Color Colorless Yellow Urine Clarity Hazy H Clear Urine pH 6.5 5.0-9.0 Urine Specific [place] 1.016 1.001-1.035 Urine Protein Negative Negative Urine Ketones Negative Negative Urine Blood Trace H Negative /uL Urine Nitrite Negative Negative Urine Bilirubin Negative Negative Urine Urobilinogen Normal Negative mg/dL Urine Leukocyte Esterase Negative Negative /uL Urine RBC None seen 0 - 4 /hpf Urine Microscopic WBC 50 H 0-5 /HPF Urine Squamous Epithelial Cells Moderate <5 /hpf Urine Calcium Oxalate Crystals Moderate None Seen Urine Bacteria Moderate H None Seen /hpf Urine Glucose Normal Normal mg/dL Current Medications Medications (Trade) Dose Ordered Sig/Josselyn Route Start Time Stop Time Status Last Admin Sodium Chloride 1,000 ml @ 1,000 mls/hr Q1H ONCE IV 12/06/24 19:45 12/06/24 20:44 DC 12/06/24 20:50 Ondansetron HCl (Zofran) 4 mg ONCE ONCE IV 12/06/24 19:45 12/06/24 19:46 DC 12/06/24 20:57 Ketorolac Tromethamine (Toradol Injection) 30 mg ONCE ONCE IV 12/06/24 19:45 12/06/24 19:46 DC 12/06/24 20:57 Ceftriaxone Sodium/Dextrose 50 ml @ 50 mls/hr ONCE ONCE IV 12/06/24 19:45 12/06/24 20:44 DC 12/06/24 20:57 Exam: CT CT AB PEL WO CON-NO ORAL OR IV History: L flank pain radiating to LLQ, nausea, h/o kid stone Comparison Study: CT ABD PELVIS WO CONTRAST on DOS: 01/05/22 TECHNIQUE: Multidetector CT of the abdomen and pelvis without IV contrast. Axial, coronal and sagittal multiplanar reformats were obtained from the axial data set by the technologist. Radiation Dose Information: CT Dose: CTDI volume is 7.32 mGy. Dose-length product is 3.92 mGy*cm FINDINGS: Bibasilar atelectasis. Partially visualized heart is unremarkable. Mild hepatomegaly. Otherwise, liver, spleen, gallbladder, pancreas and adrenal glands are unremarkable. Bilateral renal nonobstructing calculi, largest of the lower pole of the right kidney measuring up to 6 mm. 7 x 8 mm obstructing calculus of the left ureteropelvic junction causing [id number] left [place] nephrosis. The urinary bladder is unremarkable. The uterus appears truncated. There is soft tissue density within the right hemipelvis measuring up to 4.3 x 2.9 x 3.1 cm which may represent asymmetric prominent right ovary. Postsurgical changes of the stomach. Small bowel loops unremarkable. Appendix is unremarkable. Moderate to large amount of fecal material within the colon. No evidence of intraperitoneal free air or free fluid. No evidence of aortic aneurysm. No significant lymphadenopathy. Soft tissues are unremarkable. No evidence of acute osseous abnormalities. IMPRESSION: 7 x 8 mm obstructing calculus of the left ureteropelvic junction causing [id number] Left [place] nephrosis. Additional multiple nonobstructing bilateral renal calculi, largest of the right lower pole measuring up to 6 mm. Slight asymmetric prominence of the right ovary compared to the left. Pelvic ultrasound may be considered for further evaluation. Moderate to large amount of fecal material within the colon. X-Ray, Labs, Meds, VS Comment 49-year-old female with a history of kidney stones status post lithotripsy, hysterectomy and gastric sleeve brought in by private car complaining of left flank pain radiating to the left lower quadrant for the past 2 or 3 days. Vitals remarkable for BP 146/90 Exam remarkable for left flank and left lower quadrant tenderness to palpation Rhythm strip independently interpreted by me: Sinus rhythm, rate 78, no ectopy. CT abdomen and pelvis IMPRESSION: 7 x 8 mm obstructing calculus of the left ureteropelvic junction causing [id number] Left [place] nephrosis. Additional multiple nonobstructing bilateral renal calculi, largest of the right lower pole measuring up to 6 mm. Slight asymmetric prominence of the right ovary compared to the left. Pelvic ultrasound may be considered for further evaluation. Moderate to large amount of fecal material within the colon. CBC remarkable for WBC 12.4, basic metabolic panel pending, UA hazy with trace blood, WBCs are pending (note patient is currently taking Macrobid, so UA findings may represent partially treated UTI) Patient treated with the following in the ED: 1 L 0.9 normal saline IV bolus, Toradol 30 mg IV, Zofran 4 mg IV, Rocephin 2 g IV Plan is to admit the patient for urology evaluation and pain control. Time of 1ST Reevaluation: 19:40 Reevaluation 1ST: Unchanged Patient Education/Counseling: Diagnosis, Treatment Family Education/Counseling: No Family Present SEPSIS Sepsis Screen Date sepsis recognized/suspect: Dec 06, 2024 Time Sepsis recognized/suspect: 1741 Recent Procedure: No On Antibiotic Therapy: No Respiratory Rate >20: No Heart Rate >90: No Temp<36 C (96.8 F) or >38.3 C: No SBP <90 or MAP <65 mmHG: No New Acute Mental Status Change: No Is the patient on CPAP, BIPAP,: No Physician Orders Ct Ab Pel Wo Con-No Oral Or Iv (12/06/24 19:33) Vital Signs Date Time Temp Pulse Resp B/P (MAP) Pulse Ox O2 Delivery O2 Flow Rate FiO2 12/06/24 20:50 86 19 100 Room Air 12/06/24 20:50 98.2 86 19 128/87 (101) 100 98.2 12/06/24 17:41 98.2 78 18 146/90 99 98.2 Laboratory Tests Test 12/06/24 20:27 White Blood Count 12.4 10^3/uL (4.4-10.8) H Medications Medications Dose Ordered Sig/Josselyn Route Start Time Stop Time Status Last Admin Dose Admin Ceftriaxone Sodium/Dextrose 50 ml @ 50 mls/hr ONCE ONCE IV 12/06/24 19:45 12/06/24 20:44 DC 12/06/24 20:57 Ketorolac Tromethamine 30 mg ONCE ONCE IV 12/06/24 19:45 12/06/24 19:46 DC 12/06/24 20:57 Ondansetron HCl 4 mg ONCE ONCE IV 12/06/24 19:45 12/06/24 19:46 DC 12/06/24 20:57 Sodium Chloride 1,000 ml @ 1,000 mls/hr Q1H ONCE IV 12/06/24 19:45 12/06/24 20:44 DC 12/06/24 20:50 Departure 1 Departure Time of Disposition: 21:11 Impression: Primary Impression: Hydronephrosis concurrent with and due to calculi of kidney and ureter Disposition: ADMITTED INPATIENT Admit to: Med Surg Condition: Fair Critical Care Note Critical Care Time?: No Stability Stability form required: No Heart Score Heart Score: Heart Score Response (Comments) Value History N/A 0 EKG N/A 0 Age N/A 0 Risk Factors N/A 0 Troponin N/A 0 Total 0 I personally scribed for MATTI ALMARAZ MD ([email or web address]) on 12/06/24 at 19:34. Electronically submitted by Gianni Bernal ([facility] I personally scribed for MATTI ALMARAZ MD ([email or web address]) on 12/06/24 at 19:42. Electronically submitted by Gianni Bernal ([facility] I personally scribed for MATTI ALMARAZ MD ([email or web address]) on 12/06/24 at 2 0:56. Electronically submitted by Gianni Bernal ([facility] MATTI ALMARAZ MD Dec 06, 2024 19:34
[2024-12-06 20:10] LABS: Urine Protein, UAD Negative (Negative)
--- NOTE | 2024-12-06 20:39 | DVH ---
Exam: CT CT AB PEL WO CON-NO ORAL OR IV History: L flank pain radiating to LLQ, nausea, h/o kid stone Comparison Study: CT ABD PELVIS WO CONTRAST on DOS: 01/05/22 TECHNIQUE: Multidetector CT of the abdomen and pelvis without IV contrast. Axial, coronal and sagitta l multiplanar reformats were obtained from the axial data set by the technologist. Radiation Dose Information: CT Dose: CTDI volume is 7.32 mGy. Dose-length product is 3.92 mGy*cm FINDINGS: Bibasilar atelectasis. Partially visualized heart is unremarkable. Mild hepatomegaly. Otherwise, liver, spleen, gallbladder, pancreas and adrenal glands are unremarkabl e. Bilateral renal nonobstructing calculi, largest of the lower pole of the right kidney measuring up to 6 mm. 7 x 8 mm obstructing calculus of the left ureteropelvic junction causing [id number] left [place] nephrosis. The urinary bladder is unremarkable. The uterus appears truncated. There is soft ti ssue density within the right hemipelvis measuring up to 4.3 x 2.9 x 3.1 cm which may represent asym metric prominent right ovary. Postsurgical changes of the stomach. Small bowel loops unremarkable. Appendix is unremarkable. Modera te to large amount of fecal material within the colon. No evidence of intraperitoneal free air or free fluid. No evidence of aortic aneurysm. No significant lymphadenopathy. Soft tissues are unremarkable. No evidence of acute osseous abnormalities. IMPRESSION: 7 x 8 mm obstructing calculus of the left ureteropelvic junction causing [id number] Left [place] nephrosis. Additional multiple nonobstructing bilateral renal calculi, largest of the right lower pole measuring up to 6 mm. Slight asymmetric prominence of the right ovary compared to the left. Pelvic ultrasound may be consi dered for further evaluation. Moderate to large amount of fecal material within the colon.
[2024-12-06] MEDS: SODIUM CHLORIDE 0.9% 1,000 ML IV ONE (20:50)
[2024-12-06] MEDS: cefTRIAXone 2GM/50ML D5W 50 ML IV ONE (20:57)
[2024-12-06] MEDS: ONDANSETRON HCL 4 MG/2 ML VIAL IV ONE (20:57)
[2024-12-06] MEDS: KETOROLAC TROMETH 30 MG/ML 1ML VIAL IV ONE (20:57)
[2024-12-06 21:04] LABS: Hematocrit 43.7 % (36.0-46.0); Hemoglobin 14.8 g/dL (12.2-16.2); Mean Corpuscular Hemoglobin 30.2 pg (28.0-32.0); Mean Corpuscular Volume 89.0 fL (80.0-100.0); Nucleated Red Blood Cells % 0.0 %
[2024-12-06 21:08] LABS: Chloride 105 mmol/L (98-107); Potassium 4.1 mmol/L (3.5-5.1); Sodium 139 mmol/L (136-145)
[2024-12-06 21:09] LABS: Anion Gap 9 (5-15); Carbon Dioxide 25 mmol/L (20-31)
[2024-12-06 21:10] LABS: Calcium 11.3 mg/dL (8.7-10.4)
[2024-12-06 21:14] LABS: BUN/Creatinine Ratio 17.3 (10.0-20.0); Blood Urea Nitrogen 17 mg/dL (9-23)
[2024-12-06 21:27] LABS: Glucose 115 mg/dL (74-106)
[2024-12-06] MEDS: SODIUM CHLORIDE 0.9% 1,000 ML IV SCH (22:45)
--- NOTE | 2024-12-06 23:15 | DVHHPRES ---
History of Present Illness Resident Creating Document: CÉSAR DAVENPORT RESIDENT History of Present Illness 49-year-old female with previous history of lithotripsy due to renal stones, hysterectomy and gastric sleeve presents to the ER with left flank pain, initially 10/10, which is now 6/10 after receiving morphine, radiating to the left lower abdomen and groin since last Monday, associated with nausea vomiting and multiple episodes of hematuria. She received ondansetron in the ER which is improving her nausea symptoms. The patient reports having frequency urgency and burning sensation in urine. She went to Dr. Ana Lilia Galindo' office, where she was diagnosed with UTI after urinalysis. She had a right foot fracture followed by trauma last week. She had a short-leg cast in place and reported having mild pain at the fracture site. She denies any chest pain, shortness of breath, fever or any other complaints at this time. Past medical history: Kidney stones Past surgical history: Lithotripsy (), hysterectomy, gastric sleeve Home Medications: Wellbutrin, Xanax Allergies: None Family history: Grandmother and father has diabetes mellitus, maternal grandmother had lung cancer. Two of the maternal aunts have uterine and esophageal cancers respectively. Smoking: None Alcohol: None Drugs: None PCP: Ana Lilia Galindo Code status: Full code Review of Systems Gastrointestinal: Nausea, Vomiting, Abdominal Pain Genitourinary: Dysuria, Frequency, Hematuria Allergies: Coded Allergies: NO KNOWN ALLERGIES (Unverified , 06/03/19) Medications Current Medications Medications Dose Ordered Sig/Josselyn Route Start Time Stop Time Status Last Admin Dose Admin Sodium Chloride 1,000 ml @ 60 mls/hr [id number] IV 12/06/24 22:45 Ondansetron HCl 4 mg Q4HP PRN IV 12/06/24 22:45 Ceftriaxone Sodium 50 ml @ 100 mls/hr DAILY@2100 IV 12/07/24 21:00 Exam Vital Signs Vital Signs Date Time Temp Pulse Resp B/P (MAP) Pulse Ox O2 Delivery O2 Flow Rate FiO2 12/06/24 20:50 86 19 100 Room Air 12/06/24 20:50 98.2 128/87 (101) 98.2 Exam Pt is lying on bed General Appearance: Alert, Oriented X3, Cooperative, Mild distress HEENT: Atraumatic, Mucous membranes moist/pink Respiratory: Clear to auscultation, Normal air movement, No added sounds Cardiovascular: Regular rate, Normal S1, Normal S2, No murmurs Abdominal/ : Active bowel sounds, Soft, no distention, left flank tenderness present Extremities: No edema, Normal pulses, No tenderness/swelling Skin: No Significant rash, except past surgical scars Neuro: Normal speech, sensorimotor deficits none Psych/Mental Status: Mental status NL, Mood NL Nurse was there as grain combiner during examination Labs/Xrays Labs Test 12/06/24 20:27 12/06/24 18:50 Range/Units White Blood Count 12.4 H 4.4-10.8 10^3/uL Red Blood Count 4.91 4.0-5.20 10^6/uL Hemoglobin 14.8 12.2-16.2 g/dL Hematocrit 43.7 36.0-46.0 % Mean Corpuscular Volume 89.0 80.0-100.0 fL Mean Corpuscular Hemoglobin 30.2 28.0-32.0 pg Mean Corpuscular Hemoglobin Concent 34.0 32.0-36.0 g/dL Red Cell Distribution Width 13.3 11.8-14.3 % Platelet Count 223 140-450 10^3/uL Mean Platelet Volume 9.4 6.9-10.8 fL Neutrophils (%) (Auto) 75.6 37.0-80.0 % Lymphocytes (%) (Auto) 14.2 10.0-50.0 % Monocytes (%) (Auto) 8.8 0.0-12.0 % Eosinophils (%) (Auto) 1.0 0.0-7.0 % Basophils (%) (Auto) 0.4 0.0-2.0 % Neutrophils # (Auto) 9.4 H 1.6-8.6 10 ^3/uL Lymphocytes # (Auto) 1.8 0.4-5.4 10 ^3/uL Monocytes # (Auto) 1.1 0-1.3 10 ^3/uL Eosinophils # (Auto) 0.1 0-0.8 10 ^3/uL Basophils # (Auto) 0 0-0.2 10 ^3/uL Nucleated Red Blood Cells 0.0 % Sodium Level 139 136-145 mmol/L Potassium Level 4.1 3.5-5.1 mmol/L Chloride Level 105 98-107 mmol/L Carbon Dioxide Level 25 20-31 mmol/L Anion Gap 9 5-15 Blood Urea Nitrogen 17 9-23 mg/dL Creatinine 0.98 0.550-1.02 mg/dL Glomerular Filtration Rate Calc 71 >90 mL/min BUN/Creatinine Ratio 17.3 10.0-20.0 Serum Glucose 115 H 74-106 mg/dL Calcium Level 11.3 H 8.7-10.4 mg/dL Urine Color Colorless Yellow Urine Clarity Hazy H Clear Urine pH 6.5 5.0-9.0 Urine Specific [place] 1.016 1.001-1.035 Urine Protein Negative Negative Urine Ketones Negative Negative Urine Blood Trace H Negative /uL Urine Nitrite Negative Negative Urine Bilirubin Negative Negative Urine Urobilinogen Normal Negative mg/dL Urine Leukocyte Esterase Negative Negative /uL Urine RBC None seen 0 - 4 /hpf Urine Microscopic WBC 50 H 0-5 /HPF Urine Squamous Epithelial Cells Moderate <5 /hpf Urine Calcium Oxalate Crystals Moderate None Seen Urine Bacteria Moderate H None Seen /hpf Urine Glucose Normal Normal mg/dL SEPSIS Sepsis Screen Date sepsis recognized/suspect: Dec 06, 2024 Time Sepsis recognized/suspect: 1741 Recent Procedure: No On Antibiotic Therapy: No Respiratory Rate >20: No Heart Rate >90: No Temp<36 C (96.8 F) or >38.3 C: No SBP <90 or MAP <65 mmHG: No New Acute Mental Status Change: No Is the patient on CPAP, BIPAP,: No Physician Orders Ct Ab Pel Wo Con-No Oral Or Iv (12/06/24 19:33) Allergies (12/06/24 22:42) Code Status (12/06/24 22:42) Sodium Chloride 0.9% (12/06/24 22:45) Ondansetron Hcl (Zofran) (12/06/24 22:45) Complete Blood Count (12/07/24 04:00) Comprehensive Metabolic Panel (12/07/24 04:00) Npo (Nothing By Mouth) Diet (12/07/24 Breakfast) Admit (12/06/24 22:42) Oxygen By Nasal Cannula (12/06/24 22:42) Notify Of Changes From Base (12/06/24 22:42) Ceftriaxone 1gm/50ml D5w (Rocephin) (12/07/24 21:00) * Urology Consult (12/06/24 22:49) Vital Signs Date Time Temp Pulse Resp B/P (MAP) Pulse Ox O2 Delivery O2 Flow Rate FiO2 12/06/24 20:50 86 19 100 Room Air 12/06/24 20:50 98.2 86 19 128/87 (101) 100 98.2 12/06/24 17:41 98.2 78 18 146/90 99 98.2 Laboratory Tests Test 12/06/24 20:27 White Blood Count 12.4 10^3/uL (4.4-10.8) H Medications Medications Dose Ordered Sig/Josselyn Route Start Time Stop Time Status Last Admin Dose Admin Ceftriaxone Sodium/Dextrose 50 ml @ 50 mls/hr ONCE ONCE IV 12/06/24 19:45 12/06/24 20:44 DC 12/06/24 20:57 50 MLS/HR Ketorolac Tromethamine 30 mg ONCE ONCE IV 12/06/24 19:45 12/06/24 19:46 DC 12/06/24 20:57 30 MG Ondansetron HCl 4 mg ONCE ONCE IV 12/06/24 19:45 12/06/24 19:46 DC 12/06/24 20:57 4 MG Sodium Chloride 1,000 ml @ 1,000 mls/hr Q1H ONCE IV 12/06/24 19:45 12/06/24 20:44 DC 12/06/24 20:50 1,000 MLS/HR Assessment/Plan Assessment/Plan #Flank pain, hematuria due to bilateral renal stones # UTI CT abdomen pelvis:7 x 8 mm obstructing calculus of the left ureteropelvic junction causing [id number] Left [place] nephrosis.Additional multiple nonobstructing bilateral renal calculi, largest of the right lower pole measuring up to 6 mm.Slight asymmetric prominence of the right ovary compared to the left. Pelvic ultrasound may be considered for further evaluation.Moderate to large amount of fecal material within the colon. -IV fluids -morphine -ondansetron -ceftriaxone -urology consulted # depression, anxiety Continue home medications Wellbutrin and Xanax GI prophylaxis: Pantoprazole DVT prophylaxis: Not indicated Diet: Clear liquids followed by NPO if urology recommends Goals of care discussed with the patient for more than 27 minutes: Full code status Case discussed with , patient and RN Plan discussed with: Patient, Other My Orders Orders - CÉSAR DAVENPORT RESIDENT Procedure Category Date Status Time Allergies GUERA 12/06/24 In Process 22:42 Code Status CODE 12/06/24 Transmitted 22:42 Sodium Chloride 0.9% PHA 12/06/24 In Process 22:45 Ondansetron Hcl PHA 12/06/24 In Process (Zofran) 22:45 Complete Blood Count LAB 12/07/24 Verified 04:00 Comprehensive LAB 12/07/24 Verified Metabolic Panel 04:00 Npo (Nothing By DIET 12/07/24 Transmitted Mouth) Diet Breakfast Admit ADMIT 12/06/24 Transmitted 22:42 Oxygen By Nasal RT 12/06/24 Transmitted Cannula 22:42 Notify Of Changes GUERA 12/06/24 In Process From Base 22:42 Ceftriaxone 1gm/50ml PHA 12/07/24 In Process D5w (Rocephin) 21:00 * Urology Consult CONS 12/06/24 Transmitted 22:49 Date of Service: Dec 07, 2024 Billing Provider: BRANDON ESCUDERO MD Common Visit Codes: [id number] INP/OBS CARE (HIGH) Secondary Visit Codes: [id number] CARE PLAN 30 MINUTES CÉSAR DAVENPORT Dec 06, 2024 23:15
[2024-12-07 06:48] LABS: Hematocrit 39.4 % (36.0-46.0); Hemoglobin 13.6 g/dL (12.2-16.2); Mean Corpuscular Hemoglobin 30.6 pg (28.0-32.0); Mean Corpuscular Volume 88.9 fL (80.0-100.0); Nucleated Red Blood Cells % 0.1 %
[2024-12-07 07:02] LABS: Anion Gap 6 (5-15); BUN/Creatinine Ratio 20.4 (10.0-20.0); Blood Urea Nitrogen 22 mg/dL (9-23); Carbon Dioxide 27 mmol/L (20-31); Potassium 4.2 mmol/L (3.5-5.1); Sodium 141 mmol/L (136-145); Total Protein 6.7 g/dL (5.7-8.2)
[2024-12-07 07:03] LABS: Albumin 4.3 g/dL (3.2-4.8); Bilirubin, Total 0.3 mg/dL (0.2-1.0)
[2024-12-07 07:10] LABS: Alanine Aminotransferase 9 U/L (7-40); Alkaline Phosphatase 124 U/L (46-116); Calcium 10.8 mg/dL (8.7-10.4); Chloride 108 mmol/L (98-107); Glucose 106 mg/dL (74-106)
[2024-12-07] MEDS: MORPHINE SULFATE INJ 2 MG/ml SYRG IV ONE (08:53)
[2024-12-07] MEDS: PANTOPRAZOLE 40 MG/10 ML VIAL INJ IV SCH (08:53)
[2024-12-07] MEDS: ONDANSETRON HCL 4 MG/2 ML VIAL IV PRN (08:53)
[2024-12-07 12:30] VITALS: PULSE 63; RESP 16; O2SAT 100
[2024-12-07] MEDS: MORPHINE SULFATE INJ 2 MG/ml SYRG IV PRN (16:10)
--- NOTE | 2024-12-07 17:01 | DVHPN2 ---
Assessment/Plan Assessment/Plan Progress note 49 F with prior renal stones s/p lithotripsym gastric sleeve, hysterectomy admitted for nephrolithiasis with hydronephrosis. Physical exam AOx4 PERLLA MMM clear breath sounds s1 s2 rrr abdomen soft nontender mild CVA tenderness no LE edema R leg in cast Labs EKG imaging reviewed Assessment and plan b/l nephrolithiasis L UPJ obstructing calculus L hydronephrosis MDD VALERIANO hypercalcemia UTI? uro, likely will need litotripsy pain mgmt. fluids resume home meds send PTH ceftriaxone diet reg dvt ppx ambulatory full code Plan discussed with: Patient My Orders Orders - AMARILIS MOLINA MD Procedure Category Date Status Time Bupropion Tablet PHA 12/07/24 Transmitted (Wellbutrin Tablet) 19:00 Complete Blood Count LAB 12/08/24 Verified 04:00 Basic Metabolic Panel LAB 12/08/24 Verified 04:00 Date of Service: Dec 07, 2024 Billing Provider: AMARILIS MOLINA MD Common Visit Codes: [id number] INP/OBS CARE(HIGH) AMARILIS MOLINA MD Dec 07, 2024 17:01
[2024-12-07] MEDS: cefTRIAXone 1GM/50ML D5W 50 ML IV SCH (20:43)
[2024-12-07 21:00] VITALS: BP 135/74; PULSE 50; RESP 16; TEMP 98.2; O2SAT 100
[2024-12-08] VITALS (8 sets, daily range): BP systolic 107–143; BP diastolic 68–80; PULSE 50–83; RESP 16–18; TEMP 97.9–99.4; O2SAT 95–100
[2024-12-08 07:12] LABS: Chloride 107 mmol/L (98-107); Potassium 4.1 mmol/L (3.5-5.1); Sodium 140 mmol/L (136-145)
[2024-12-08 07:13] LABS: Anion Gap 6 (5-15); Carbon Dioxide 27 mmol/L (20-31)
[2024-12-08 07:18] LABS: BUN/Creatinine Ratio 15.8 (10.0-20.0); Blood Urea Nitrogen 18 mg/dL (9-23); Calcium 10.6 mg/dL (8.7-10.4); Glucose 104 mg/dL (74-106)
[2024-12-08 07:21] LABS: Hematocrit 38.0 % (36.0-46.0); Hemoglobin 13.1 g/dL (12.2-16.2); Mean Corpuscular Hemoglobin 30.8 pg (28.0-32.0); Mean Corpuscular Volume 89.4 fL (80.0-100.0); Nucleated Red Blood Cells % 0.0 %
--- NOTE | 2024-12-08 14:28 | DVHINCON2 ---
Date of service: Dec 08, 2024 Referring Physician hospitalist Reason for Consultation ureteral stone History of Present Illness History Source: Patient, RN Notes, MD Notes, Old Records Exam Limitations: No limitations HPI 49 yo female with prior hx of kidney stones presents with intractable left flank pain 2/2 UPJ stone causing moderate hydronephrosis. SHe denies fever, chills, or vomiting. C/o nausea. she is voiding without issue. Home Meds Reported Medications Alprazolam (Xanax) 0.25 Mg Tb, 0.25 MG PO HS, TAB 11/12/21 Past Medical History Renal/: Other (kidney stones) Patient Family History: Diabetes mellitus G8 FATHER Drug abuse G8 FATHER FH: stroke G8 FATHER Smoker: No Hx (Negative) Alocohol: None Drugs: None Domestic Violence: Neg Review of Systems Gastrointestinal: Nausea Genitourinary: Pain H&P Exam Vital Signs Vital Signs Date Time Temp Pulse Resp B/P (MAP) Pulse Ox O2 Delivery O2 Flow Rate FiO2 12/08/24 13:00 97.9 83 18 128/72 (90) 98 97.9 12/07/24 20:00 Room Air* 0 21 General Appeara: Well developed, Well nourished, Normal Appearance Neuro/Mental St: Alert, Oriented Appearance: Appropriate appearance, Appropriate insight Eye contact/ Speech: Cooperative, Good eye contact, Normal speech Skin Exam: Normal inspection, Normal color, Warm/dry Labs/Xrays [place] [id number] Ph: [phone] DIAGNOSTIC IMAGING Diagnostic Imaging Report : [id number] Signed PATIENT: MICHELLE PADILLA ACCT: [id number] UNIT: [id number] : 1975 LOC: ER ROOM / BED: / AGE / SEX: 49 / F ADM STATUS: REG ER SERVICE 32 ORDERING PHYSICIAN: MATTI ALMARAZ MD PROCEDURE(s): ABPL - CT AB PEL WO CON-NO ORAL OR IV REASON: L flank pain radiating to LLQ, nausea, h/o kid stone ORDER NUMBER(s): [id number], ACCESSION NUMBER(s): [id number] Exam: CT CT AB PEL WO CON-NO ORAL OR IV History: L flank pain radiating to LLQ, nausea, h/o kid stone Comparison Study: CT ABD PELVIS WO CONTRAST on DOS: 01/05/22 TECHNIQUE: Multidetector CT of the abdomen and pelvis without IV contrast. Axial, coronal and sagittal multiplanar reformats were obtained from the axial data set by the technologist. Radiation Dose Information: CT Dose: CTDI volume is 7.32 mGy. Dose-length product is 3.92 mGy*cm FINDINGS: Bibasilar atelectasis. Partially visualized heart is unremarkable. Mild hepatomegaly. Otherwise, liver, spleen, gallbladder, pancreas and adrenal glands are unremarkable. Bilateral renal nonobstructing calculi, largest of the lower pole of the right kidney measuring up to 6 mm. 7 x 8 mm obstructing calculus of the left ureteropelvic junction causing ktvj-iq-[id number] left [place] nephrosis. The urinary bladder is unremarkable. The uterus appears truncated. There is soft tissue density within the right hemipelvis measuring up to 4.3 x 2.9 x 3.1 cm which may represent asymmetric prominent right ovary. Postsurgical changes of the stomach. Small bowel loops unremarkable. Appendix is unremarkable. Moderate to large amount of fecal material within the colon. No evidence of intraperitoneal free air or free fluid. No evidence of aortic aneurysm. No significant lymphadenopathy. Soft tissues are unremarkable. No evidence of acute osseous abnormalities. IMPRESSION: 7 x 8 mm obstructing calculus of the left ureteropelvic junction causing dyoq-te-sijucsav Left [place] nephrosis. Additional multiple nonobstructing bilateral renal calculi, largest of the right lower pole measuring up to 6 mm. Slight asymmetric prominence of the right ovary compared to the left. Pelvic ultrasound may be considered for further evaluation. Moderate to large amount of fecal material within the colon. ATED BY: KINSEY BLANCO DO DICTATED DATE/TIME: 12/06/242036 SIGNED BY: KINSEY BLANCO DO SIGNED DATE/TIME: 12/06/242036 CC: Labs Test 12/08/24 05:18 12/07/24 06:34 12/06/24 18:50 Range/Units White Blood Count 6.4 4.4-10.8 10^3/uL Red Blood Count 4.26 4.0-5.20 10^6/uL Hemoglobin 13.1 12.2-16.2 g/dL Hematocrit 38.0 36.0-46.0 % Mean Corpuscular Volume 89.4 80.0-100.0 fL Mean Corpuscular Hemoglobin 30.8 28.0-32.0 pg Mean Corpuscular Hemoglobin Concent 34.5 32.0-36.0 g/dL Red Cell Distribution Width 13.3 11.8-14.3 % Platelet Count 199 140-450 10^3/uL Mean Platelet Volume 9.1 6.9-10.8 fL Neutrophils (%) (Auto) 58.4 37.0-80.0 % Lymphocytes (%) (Auto) 28.4 10.0-50.0 % Monocytes (%) (Auto) 9.7 0.0-12.0 % Eosinophils (%) (Auto) 3.0 0.0-7.0 % Basophils (%) (Auto) 0.5 0.0-2.0 % Neutrophils # (Auto) 3.7 1.6-8.6 10 ^3/uL Lymphocytes # (Auto) 1.8 0.4-5.4 10 ^3/uL Monocytes # (Auto) 0.6 0-1.3 10 ^3/uL Eosinophils # (Auto) 0.2 0-0.8 10 ^3/uL Basophils # (Auto) 0 0-0.2 10 ^3/uL Nucleated Red Blood Cells 0.0 % Sodium Level 140 136-145 mmol/L Potassium Level 4.1 3.5-5.1 mmol/L Chloride Level 107 98-107 mmol/L Carbon Dioxide Level 27 20-31 mmol/L Anion Gap 6 5-15 Blood Urea Nitrogen 18 9-23 mg/dL Creatinine 1.14 H 0.550-1.02 mg/dL Glomerular Filtration Rate Calc 59 >90 mL/min BUN/Creatinine Ratio 15.8 10.0-20.0 Serum Glucose 104 74-106 mg/dL Calcium Level 10.6 H 8.7-10.4 mg/dL Total Bilirubin 0.3 0.2-1.0 mg/dL Aspartate Amino Transferase (AST) 17 13-40 U/L Alanine Aminotransferase (ALT) 9 7-40 U/L Alkaline Phosphatase 124 H 46-116 U/L Total Protein 6.7 5.7-8.2 g/dL Albumin 4.3 3.2-4.8 g/dL Urine Color Colorless Yellow Urine Clarity Hazy H Clear Urine pH 6.5 5.0-9.0 Urine Specific [place] 1.016 1.001-1.035 Urine Protein Negative Negative Urine Ketones Negative Negative Urine Blood Trace H Negative /uL Urine Nitrite Negative Negative Urine Bilirubin Negative Negative Urine Urobilinogen Normal Negative mg/dL Urine Leukocyte Esterase Negative Negative /uL Urine RBC None seen 0 - 4 /hpf Urine Microscopic WBC 50 H 0-5 /HPF Urine Squamous Epithelial Cells Moderate <5 /hpf Urine Calcium Oxalate Crystals Moderate None Seen Urine Bacteria Moderate H None Seen /hpf Urine Glucose Normal Normal mg/dL Assessment/Plan Problem List: (1) Low back pain (2) Right renal stone (3) Hydronephrosis concurrent with and due to calculi of kidney and ureter Plan NPO after midnight consent for left eswl and stent placement pain meds prn Plan discussed with: Patient, Spouse, Other RUKHSANA ELLIS NP Dec 08, 2024 14:28
--- NOTE | 2024-12-08 17:22 | DVHPN2 ---
Assessment/Plan Assessment/Plan Progress note 49 F with prior renal stones s/p lithotripsym gastric sleeve, hysterectomy admitted for nephrolithiasis with hydronephrosis. seen today. discussed with uro, plan for ESWL tomorrow. Physical exam AOx4 PERLLA MMM clear breath sounds s1 s2 rrr abdomen soft nontender mild CVA tenderness no LE edema R leg in cast Labs EKG imaging reviewed Assessment and plan b/l nephrolithiasis L UPJ obstructing calculus L hydronephrosis MDD VALERIANO hypercalcemia UTI? uro, likely will need litotripsy pain mgmt. fluids resume home meds send PTH ceftriaxone diet reg dvt ppx ambulatory full code Plan discussed with: Patient My Orders Orders - AMARILIS MOLINA MD Procedure Category Date Status Time * Wound Consult CONS 12/08/24 Transmitted Kidney US 12/08/24 Taken 12:17 Basic Metabolic Panel LAB 12/09/24 Verified 04:00 Complete Blood Count LAB 12/09/24 Verified 04:00 PTPTT LAB 12/09/24 Verified 04:00 Date of Service: Dec 08, 2024 Billing Provider: AMARILIS MOLINA MD Common Visit Codes: [id number] INP/OBS CARE(HIGH) AMARILIS MOLINA MD Dec 08, 2024 17:22
--- NOTE | 2024-12-08 18:07 | DVH ---
RENAL ULTRASOUND CLINICAL HISTORY: hydronephrosis TECHNIQUE: Multiple grayscale ultrasound images were obtained through the kidneys and urinary bladder . COMPARISON: CT abdomen and pelvis from 12/06/2024 FINDINGS: Right kidney: Measures 12.8 cm. No hydronephrosis. Left kidney: 12.7 cm. Wffd-co-caxlehiv hydronephrosis. There is a nonobstructing calculus in the lowe r pole left kidney measuring 7 mm. Urinary bladder: Unremarkable. Prevoid volume is 138 mL IMPRESSION: Normal-sized bilateral kidneys. Iemv-fx-zcmrvhqv left hydronephrosis. Nonobstructing left lower pole renal calculus. Additional known bilateral renal calculi seen to better advantage on recent CT abdomen and pelvis
[2024-12-09] VITALS (10 sets, daily range): BP systolic 93–146; BP diastolic 56–79; PULSE 44–109; RESP 12–17; TEMP 97.8–98.2; O2SAT 95–100
[2024-12-09] MEDS: KETOROLAC TROMETH 30 MG/ML 1ML VIAL IV ONE (03:26)
[2024-12-09 08:24] LABS: Hematocrit 35.2 % (36.0-46.0); Hemoglobin 12.2 g/dL (12.2-16.2); Mean Corpuscular Hemoglobin 30.5 pg (28.0-32.0); Mean Corpuscular Volume 88.3 fL (80.0-100.0); Nucleated Red Blood Cells % 0.0 %
[2024-12-09 08:38] LABS: INR 1.15 (0.9-1.15); Partial Thromboplastin Time 27.6 SEC (24.5-34.5); Prothrombin Time 12.0 sec (9.3-11.8)
[2024-12-09 08:41] LABS: Potassium 4.2 mmol/L (3.5-5.1); Sodium 141 mmol/L (136-145)
[2024-12-09 08:42] LABS: Anion Gap 8 (5-15); Calcium 10.2 mg/dL (8.7-10.4); Carbon Dioxide 26 mmol/L (20-31)
[2024-12-09 08:47] LABS: BUN/Creatinine Ratio 12.6 (10.0-20.0); Blood Urea Nitrogen 13 mg/dL (9-23); Chloride 107 mmol/L (98-107); Glucose 93 mg/dL (74-106)
[2024-12-09] MEDS ORDERED: ACETAMINOPHEN 325 MG TAB PO PRN (10:00)
[2024-12-09] MEDS ORDERED: ACETAMINOPHEN 325 MG TAB PO SCH (10:00)
[2024-12-09] MEDS: KETOROLAC TROMETH 30 MG/ML 1ML VIAL IV PRN (11:46)
[2024-12-09] MEDS ORDERED: IOHEXOL 300 MG/ML 100ML BOTTLE IJ ONE (13:01)
[2024-12-09] MEDS ORDERED: CIPROFLOXACIN 400MG/200ML 200 ML IV ONE (13:10)
[2024-12-09] MEDS ORDERED: METOCLOPRAMIDE HCL 5MG/ml INJ 2ml VIAL ONE (13:22)
[2024-12-09] MEDS ORDERED: LIDOCAINE 2% (LOCAL ANESTH.) PF 5ml SDV ONE (13:22)
[2024-12-09] MEDS ORDERED: fentaNYL CITRATE 100 MCG/2 ML VL ONE (13:22)
[2024-12-09] MEDS ORDERED: PROPOFOL 10 MG/ML 20 ML IV ONE (13:22)
[2024-12-09] MEDS ORDERED: MIDAZOLAM HCL 2MG/2ML 2ml VIAL (1mg/ml) ONE (13:22)
[2024-12-09] MEDS ORDERED: ONDANSETRON HCL 4 MG/2 ML VIAL ONE (13:22)
[2024-12-09] MEDS: ACETAMINOPHEN 325 MG TAB PO SCH (14:00)
[2024-12-09] MEDS ORDERED: ONDANSETRON HCL 4 MG/2 ML VIAL IV ONE (14:30)
[2024-12-09] MEDS ORDERED: HYDROmorphone HCL 2 MG/ML VL/or syr IV PRN (14:30)
[2024-12-09] MEDS ORDERED: hydrALAZINE HCL 20 MG/ML VL IV ONE (14:45)
[2024-12-09] MEDS: hydrALAZINE HCL 20 MG/ML VL ONE (15:01)
--- NOTE | 2024-12-09 15:01 | DVHNC2 ---
Procedure - OPERATIVE REPORT Pre-op. Diagnosis: Left UPJ stone, 8-9 mm Post-op. Diagnosis: Same as pre-op diagnosis Operation: Extracorporeal Shockwave Lithotripsy Anesthesia: General Indications: Patient was found to have symptomatic Urolithiasis. Patient is here to undergo ESWL therapy. Informed Consent: The procedure was explained to the patient. It's risks include but not limited to infection, bleeding, and damage to the kidney. Patient fully understood and signed the consent. Other options such as watchful waiting, Ureteroscopy, Percutaneous surgery and open surgery were also discussed. Details of Procedure: Under satisfactory anesthesia, the patient was positioned on the lithotripsy table. Using fluoroscopy the stone was localized. Starting at low energy levels, shockwave treatment was commenced. The energy level was gradually increased and stone was fragmented at 500 shockwaves. Stone pieces migrated into the renal pelvis. Stone localization onto F2 focus was performed 2 additional times to treat the stone fully. Once the treatment was completed, patient was then taken off the lithotripsy table and sent to recovery room in stable condition. Specimens: None Complications: None Findings: Stone Laterality: left Stone Location: UPJ stone 9 mm Shocks Delivered: 2400 Max Power settin Fragmentation Quality: DANIELLE Lemus MD Dec 09, 2024 15:01
--- NOTE | 2024-12-09 15:27 | DVHPN2 ---
Assessment/Plan Assessment/Plan Progress note 49 F with prior renal stones s/p lithotripsym gastric sleeve, hysterectomy admitted for nephrolithiasis with hydronephrosis. seen today. ESWL today Physical exam AOx4 PERLLA MMM clear breath sounds s1 s2 rrr abdomen soft nontender mild CVA tenderness no LE edema R leg in cast Labs EKG imaging reviewed Assessment and plan b/l nephrolithiasis L UPJ obstructing calculus L hydronephrosis MDD VALERIANO hypercalcemia UTI? ESWL today pain mgmt. fluids resume home meds send PTH ceftriaxone diet reg dvt ppx ambulatory full code Plan discussed with: Patient My Orders Orders - AMARILIS MOLINA MD Procedure Category Date Status Time Ketorolac Injection PHA 12/09/24 In Process (Toradol Injection) 09:00 Acetaminophen Tablet PHA 12/09/24 In Process (Tylenol Tablet) 14:00 Date of Service: Dec 09, 2024 Billing Provider: AMARILIS MOLINA MD Common Visit Codes: [id number] INP/OBS CARE(HIGH) AMARILIS MOLINA MD Dec 09, 2024 15:27
[2024-12-10 01:00] VITALS: BP 100/63; PULSE 58; RESP 17; TEMP 97.5; O2SAT 96
[2024-12-10 05:00] VITALS: BP 112/64; PULSE 54; RESP 17; TEMP 98; O2SAT 99
[2024-12-10 07:21] LABS: Hematocrit 35.6 % (36.0-46.0); Hemoglobin 12.5 g/dL (12.2-16.2); Mean Corpuscular Hemoglobin 31.0 pg (28.0-32.0); Mean Corpuscular Volume 88.4 fL (80.0-100.0); Nucleated Red Blood Cells % 0.0 %
[2024-12-10 07:24] LABS: Chloride 105 mmol/L (98-107); Potassium 3.8 mmol/L (3.5-5.1); Sodium 140 mmol/L (136-145)
[2024-12-10 07:25] LABS: Anion Gap 6 (5-15); Carbon Dioxide 29 mmol/L (20-31)
[2024-12-10 07:30] LABS: BUN/Creatinine Ratio 14.0 (10.0-20.0); Blood Urea Nitrogen 14 mg/dL (9-23)
[2024-12-10 07:33] LABS: Calcium 10.5 mg/dL (8.7-10.4); Glucose 133 mg/dL (74-106)
[2024-12-10 09:00] VITALS: BP_SYST 123; BP_SYST 91; BP_DIAS 55; BP_DIAS 73; PULSE 102; PULSE 69; RESP 16; RESP 18; TEMP 97.7; TEMP 98.4; O2SAT 98; O2SAT 99
[2024-12-10 13:00] VITALS: BP 114/74; PULSE 57; RESP 16; TEMP 98.4; O2SAT 97
[2024-12-10] MEDS ORDERED: OXYC-900 PO (14:13)
[2024-12-10] MEDS ORDERED: ACET-1079 PO (14:13)
--- NOTE | 2024-12-10 14:16 | DVHDS2 ---
Discharge Summary Date of Admission Dec 06, 2024 at 22:42 Date of Discharge: Dec 10, 2024 Labs/Diagnostic Data: Laboratory Results Test 12/10/24 06:44 12/09/24 07:25 12/08/24 05:18 12/07/24 06:34 White Blood Count 5.5 10^3/uL (4.4-10.8) Red Blood Count 4.03 10^6/uL (4.0-5.20) Hemoglobin 12.5 g/dL (12.2-16.2) Hematocrit 35.6 % (36.0-46.0) Mean Corpuscular Volume 88.4 fL (80.0-100.0) Mean Corpuscular Hemoglobin 31.0 pg (28.0-32.0) Mean Corpuscular Hemoglobin Concent 35.1 g/dL (32.0-36.0) Red Cell Distribution Width 13.1 % (11.8-14.3) Platelet Count 204 10^3/uL (140-450) Mean Platelet Volume 8.4 fL (6.9-10.8) Neutrophils (%) (Auto) 61.1 % (37.0-80.0) Lymphocytes (%) (Auto) 27.0 % (10.0-50.0) Monocytes (%) (Auto) 9.1 % (0.0-12.0) Eosinophils (%) (Auto) 2.3 % (0.0-7.0) Basophils (%) (Auto) 0.5 % (0.0-2.0) Neutrophils # (Auto) 3.3 10 ^3/uL (1.6-8.6) Lymphocytes # (Auto) 1.5 10 ^3/uL (0.4-5.4) Monocytes # (Auto) 0.5 10 ^3/uL (0-1.3) Eosinophils # (Auto) 0.1 10 ^3/uL (0-0.8) Basophils # (Auto) 0 10 ^3/uL (0-0.2) Nucleated Red Blood Cells 0.0 % Sodium Level 140 mmol/L (136-145) Potassium Level 3.8 mmol/L (3.5-5.1) Chloride Level 105 mmol/L (98-107) Carbon Dioxide Level 29 mmol/L (20-31) Anion Gap 6 (5-15) Blood Urea Nitrogen 14 mg/dL (9-23) Creatinine 1.00 mg/dL (0.550-1.02) Glomerular Filtration Rate Calc 69 mL/min (>90) BUN/Creatinine Ratio 14.0 (10.0-20.0) Serum Glucose 133 mg/dL (74-106) Calcium Level 10.5 mg/dL (8.7-10.4) Prothrombin Time 12.0 sec (9.3-11.8) Prothrombin Time INR 1.15 (0.9-1.15) Activated Partial Thromboplast Time 27.6 SEC (24.5-34.5) Parathyroid Hormone (Intact) 312.0 pg/mL (18.4-80.1) Total Bilirubin 0.3 mg/dL (0.2-1.0) Aspartate Amino Transferase (AST) 17 U/L (13-40) Alanine Aminotransferase (ALT) 9 U/L (7-40) Alkaline Phosphatase 124 U/L (46-116) Total Protein 6.7 g/dL (5.7-8.2) Albumin 4.3 g/dL (3.2-4.8) Test 12/06/24 18:50 Urine Color Colorless (Yellow) Urine Clarity Hazy (Clear) Urine pH 6.5 (5.0-9.0) Urine Specific [place] 1.016 (1.001-1.035) Urine Protein Negative (Negative) Urine Ketones Negative (Negative) Urine Blood Trace /uL (Negative) Urine Nitrite Negative (Negative) Urine Bilirubin Negative (Negative) Urine Urobilinogen Normal mg/dL (Negative) Urine Leukocyte Esterase Negative /uL (Negative) Urine RBC None seen /hpf (0 - 4) Urine Microscopic WBC 50 /HPF (0-5) Urine Squamous Epithelial Cells Moderate /hpf (<5) Urine Calcium Oxalate Crystals Moderate (None Seen) Urine Bacteria Moderate /hpf (None Seen) Urine Glucose Normal mg/dL (Normal) Other Laboratory Tests 12/10/24 06:44 Brief Hx & Hospital Course: 49 F with prior renal stones s/p lithotripsym gastric sleeve, hysterectomy admitted for nephrolithiasis with hydronephrosis. improved after ESWL. to follow up with urology as outpatient. has PCP, and appointment in 2 days. Condition at Discharge: Good Final Diagnosis/Problems List b/l nephrolithiasis L UPJ obstructing calculus L hydronephrosis MDD VALERIANO hypercalcemia UTI? Discharge Disposition: Home Discharge Instruct/Medications Diet: Consistent carbohydrate, Cardiac 2g Na,low cholest Activity: No Restrictions, As Tolerated Follow Up/Referral: dr Garcia in 2 weeks Medications: oxy tylenol motrin Scheduled Acetaminophen (Tylenol), 650 MG PO TID Alprazolam (Xanax), 0.25 MG PO HS, (Reported) Scheduled PRN Oxycodone HCl (Oxycodone Hydrochloride), 5 MG PO Q8HP PRN Discharge Statement: "Patient was advised to return to the ER or call 911 if any headaches, dizziness, shortness of breath, chest pain, abdominal pain, bleeding, fevers, or worsening of medical condition. Patient was counseled about treatment plan, medications, possible side effects, patientverbalized understanding. All questions were answered to the best of my ability. This discharge took greater then 30 minutes in planning, reviewing documentation, counseling the patient, and discussing with other team members." ASSESSMENT ASSESSMENT Assessment nephrolithiasis s/p ESWL Date of Service: Dec 10, 2024 Billing Provider: AMARILIS MOLINA MD Common Visit Codes: [id number] DISCH DAY >30min AMARILIS MOLINA MD Dec 10, 2024 14:16
[2024-12-10 14:57] VITALS: BP 114/74; PULSE 57; RESP 16; TEMP 98.4; O2SAT 97
== END 2024-12-10 15:36 | disposition home or self-care (01) | DRG 694 ==
LOC: ER 17:40 → OVERFLOW 22:42 → WEST WING 12-07 19:01
PROVIDERS: ADMIT Student in an Organized Health Care Education/Training Program; ATTEND Student in an Organized Health Care Education/Training Program
PROC: 0TC48ZZ Extirpation of Matter from Left Kidney Pelvis, Via Natural or Artificial Opening Endoscopic (ICD-10-PCS; principal; 2024-12-09 13:18)
DX: N13.2 Hydronephrosis with renal and ureteral calculous obstruction (principal); E83.52 Hypercalcemia; F32.9 Major depressive disorder, single episode, unspecified; N39.0 Urinary tract infection, site not specified; E11.9 Type 2 diabetes mellitus without complications; F32.A Depression, unspecified; F41.9 Anxiety disorder, unspecified; Z86.73 Personal history of transient ischemic attack (TIA), and cerebral infarction without residual deficits; Z87.442 Personal history of urinary calculi; Z87.891 Personal history of nicotine dependence; Z90.710 Acquired absence of both cervix and uterus
CPT/HCPCS: 36415; 74176; 76775; 80048; 80053; 81001; 83970; 85025; 85610; 85730; 96361; 96374; 96375; G0378; J1885; J2003; J2250; J2405; J2470; J2704

== ENCOUNTER 2025-01-01 14:43 | Outpatient (CLI) | payer BC ==
[~2025-01-01 14:43] MED LIST changes: +ACET-1079 PO; -ONDA-144 PO; +OXYC-900 PO; -TAMS-35 PO
== END 2025-01-01 17:00 | disposition home or self-care (01) ==
LOC: LAB 14:43
PROVIDERS: ATTEND Urology
DX: N20.0 Calculus of kidney (principal)

== ENCOUNTER → 2025-01-09 | Outpatient (CLI) | payer BC ==
[2025-01-09 12:49] LABS: Hematocrit 42.8 % (36.0-46.0); Hemoglobin 15.1 g/dL (12.2-16.2); Mean Corpuscular Hemoglobin 31.1 pg (28.0-32.0); Mean Corpuscular Volume 88.1 fL (80.0-100.0); Nucleated Red Blood Cells % 0.1 %
[2025-01-09 13:14] LABS: Alanine Aminotransferase 11 U/L (7-40); Anion Gap 6 (5-15); BUN/Creatinine Ratio 22.5 (10.0-20.0); Blood Urea Nitrogen 16 mg/dL (9-23); Carbon Dioxide 29 mmol/L (20-31); Chloride 107 mmol/L (98-107); Glucose 101 mg/dL (74-106); Microalb/Creat Ratio, Urine 10.0; Potassium 4.4 mmol/L (3.5-5.1); Sodium 142 mmol/L (136-145); Total Protein 7.5 g/dL (5.7-8.2)
[2025-01-09 13:15] LABS: Albumin 4.5 g/dL (3.2-4.8); Bilirubin, Total 0.6 mg/dL (0.2-1.0); HDL Cholesterol 42 mg/dL (40-59)
[2025-01-09 13:36] LABS: Alkaline Phosphatase 133 U/L (46-116); Calcium 12.0 mg/dL (8.7-10.4); Cholesterol 227 mg/dL (< 200); Triglycerides 180 mg/dL (< 150)
== END | disposition home or self-care (01) ==
LOC: LAB 12:03
PROVIDERS: ATTEND Nurse Practitioner Family
DX: I10 Essential (primary) hypertension (principal); E11.9 Type 2 diabetes mellitus without complications; E21.0 Primary hyperparathyroidism; Z00.01 Encounter for general adult medical examination with abnormal findings
CPT/HCPCS: 36415; 80053; 80061; 82043; 82570; 83036; 84443; 85025

== ENCOUNTER → 2025-01-30 | Outpatient (CLI) | payer BC | END | disposition home or self-care (01) | LOC: Rad HDHVI 15:39 | PROVIDERS: ATTEND Internal Medicine Cardiovascular Disease | DX: I08.1 Rheumatic disorders of both mitral and tricuspid valves (principal); R42 Dizziness and giddiness | CPT/HCPCS: 93306 ==

== ENCOUNTER → 2025-01-31 | Outpatient (CLI) | payer BC ==
--- NOTE | 2025-01-31 14:02 | DVH ---
Procedure: NM PARATHYROID Exam Date: 01/31/2025 08:26 AM. Clinical History: R/O ADENOMA Comparison Study: US THYROID on DOS: 01/28/25 Nuclear Medicine Parathyroid Scan. Technique: Following the intravenous injection of 19 mCi of the Technetium 99m Sestamibi, images of the neck wer e obtained in multiple projections , immediately and after a two hour delay. Findings: There is the expected physiologic distribution of radiopharmaceutical. Delayed increased activity is present in the region of the right parathyroid. Impression: Findings are suspicious for right parathyroid adenoma.
== END | disposition home or self-care (01) ==
LOC: XYW 08:05
PROVIDERS: ATTEND Internal Medicine Cardiovascular Disease
DX: E83.52 Hypercalcemia (principal); R42 Dizziness and giddiness
CPT/HCPCS: 78070; A9500

== ENCOUNTER 2025-02-05 13:49 | Outpatient (CLI) | payer BC ==
[~2025-02-05] VITALS: Ht 170.2 cm; Wt 77.1 kg
--- NOTE | 2025-02-18 13:00 | DVHSR ---
APPROVED REPORT Exam: Nuclear Stress Test Indication: Dizziness Ht: 5 ft 7 in Wt: 170 lbs BSA: 1.89 m2 HR: 64 bpm BP: 120/81 mmHg BMI: 26.62 Rhythm: NSR Medical History Medical History: Hypercholesterolemia, Bradycardia, Dizziness, Hypotension, Hypercalcemia Medications: Wellbutrin, Alprazolam, Lasix, Potassium Allergies: No known drug allergies Cardiac Risk Factors: Family Hx of CAD Stress Test Details Stress Test: Exercise stress testing was performed using a Rikki protocol. HR Resting HR: 64 bpmMax Heart Rate (APMHR): 172.609969 bpm Max HR Achieved: 164 bpmTarget HR (85% APMHR): 146.951298 bpm % of APMHR: 95.35 Recovery HR: 81 bpm HR response to stress: Normal HR response to stress BP Resting BP: 120/81 mmHg Max BP: 173/91 mmHg Recovery BP: 111/79 mmHg BP response to stress: Exaggerated response ECG Resting ECG: Sinus Rhythm Stress ECG: Sinus Tachycardia Arrhythmia: PVC, PAC Recovery ECG: Sinus Rhythm Clinical Reason for Termination: Target HR achieved Stress Symptoms: Increased lightheadedness/dizziness Exercise duration: 7 min 12 sec Exercise capacity: 10.1 METs Dizziness returned to baseline during recovery. Stress ECG Conclusion EF >55% NON ISCHEMIC CLINICAL RESPONSE NON ISCHEMIC ECG RESPONSE NON ISCHEMIC CARDIOLITE STRESS LESS THAN 10% LIKELIHOOD FOR STRESS INDUCED ISCHEMIA NM EXAM: Myocardial Perfusion REST/STRESS Imaging Protocol: Rest Tc-99m/Stress Tc-99m 1 day Resting Data Rest SPECT myocardial perfusion imaging was performed in supine position 30 minutes following the int ravenous injection of 10.92 mCi of Tc-99m Sestamibi. Time of rest injection: 1404 Date: 02/05/2025 Time of rest imagin Date: 02/05/2025 Administration Route: IV Administration Site: Right AC Exercise Stress At peak stress, the patient was injected intravenously with 32.6 mCi of Tc-99m Sestamibi. Time of stress injection: 1514 Date: 02/05/2025 Time of stress imagin Date: 02/05/2025 Administration Route: IV Administration Site: Right AC Heart Rate at time of stress injection: 164 bpm. Patient continued to exercise for 1 minute(s). Gated Stress SPECT was performed 15 minutes after stress injection. The images were gated to evaluate regional wall motion and calculate left ventricular ejection fracti on. Comments Cardiolite injection at 6 minutes, 12 seconds into test. Nuclear Conclusion EF >55% NON ISCHEMIC CLINICAL RESPONSE NON ISCHEMIC ECG RESPONSE NON ISCHEMIC CARDIOLITE STRESS LESS THAN 10% LIKELIHOOD FOR STRESS INDUCED ISCHEMIA
== END 2025-02-05 17:00 | disposition home or self-care (01) ==
LOC: Rad HDHVI 13:49
PROVIDERS: ATTEND Internal Medicine Cardiovascular Disease
DX: I49.1 Atrial premature depolarization (principal); I49.3 Ventricular premature depolarization; I95.9 Hypotension, unspecified; R00.0 Tachycardia, unspecified; E78.00 Pure hypercholesterolemia, unspecified; R00.1 Bradycardia, unspecified; R42 Dizziness and giddiness; Z82.49 Family history of ischemic heart disease and other diseases of the circulatory system
CPT/HCPCS: 78452; 93017; A9500; 96374

== ENCOUNTER 2025-03-21 10:32 | Outpatient (CLI) | payer BC ==
[~2025-03-21 10:32] MED LIST changes: +ATOR20TA PO; +BUPR150T8 PO; +HYDR-3682 PO
[2025-03-21 12:08] LABS: Magnesium 2.4 mg/dL (1.6-2.6)
[2025-03-21 13:36] LABS: Calcium 13.0 mg/dL (8.7-10.4)
== END 2025-03-21 17:00 | disposition home or self-care (01) ==
LOC: LAB 10:32
PROVIDERS: ATTEND Nurse Practitioner Family
DX: E21.0 Primary hyperparathyroidism (principal)
CPT/HCPCS: 82306; 82310; 83735; 83970; 84100